=== PATIENT | male | born 1930 | race Caucasian/White ===

== ENCOUNTER → 2019-04-04 | Outpatient (CLI) | payer MEDICARE ==
[~2019-04-04] MED LIST: FURO40 PO; LOSARTAN POTAS100 MG PO; METPRE4DP PO; OMEP20ER; POTCHL20ER PO; PRODEXEL PO; SIMV40 PO; Zithromax250 MG PO
== END | disposition home or self-care (01) ==
LOC: LAB EV 10:35
DX: R05 Cough (principal)
CPT/HCPCS: 87070; 87106; 87205

== ENCOUNTER 2020-01-26 06:29 | Inpatient (IN) | payer MEDICARE, OTHER ==
[~2020-01-26] VITALS: Ht 172.7 cm; Wt 98.8 kg
[2020-01-26] MEDS ORDERED: Ventolin/Prove6.7 GM INH (07:48)
[2020-01-26] MEDS ORDERED: Simvastatin40 MG PO (07:48)
[2020-01-26] MEDS ORDERED: LOSA25 (07:48)
[2020-01-26] MEDS ORDERED: Carvedilol25 MG PO (07:48)
[2020-01-26] MEDS ORDERED: OMEP20ER PO ×2 (07:49→12:27)
[2020-01-26] MEDS ORDERED: TERA5 PO (07:49)
[2020-01-26 08:06] LABS: BASOPHILS ABSOLUTE AUTO 0.02 K/mm3 (0.00-0.23); BASOPHILS PERCENT AUTO 0 % (0-2); EOSINOPHILS ABSOLUTE AUTO 0.05 K/mm3 (0.00-0.68); EOSINOPHILS PERCENT AUTO 0 % (0-6); Hematocrit 42.5 % (37.0-53.0); Hemoglobin 14.4 g/dL (13.5-17.5); IMMATURE GRAN ABSOLUTE AUTO 0.04 K/mm3 (0.00-0.10); IMMATURE GRAN PERCENT AUTO 0 % (0-1); LYMPHOCYTES PERCENT AUTO 4 % (21-46); MONOCYTES ABSOLUTE AUTO 0.55 K/mm3 (0.16-1.47); MONOCYTES PERCENT AUTO 5 % (4-13); Mean Corpuscular HGB 31.4 pg (26.0-34.0); Mean Corpuscular HGB Conc 33.9 g/dL (31.5-36.5); Mean Corpuscular Volume 93 fL (80-100); Mean Platelet Volume 10.8 fL (9.1-12.4); NEUTROPHILS ABSOLUTE AUTO 10.13 K/mm3 (1.96-9.15); NEUTROPHILS PERCENT AUTO 90 % (41-73); Platelet Count 211 K/mm3 (150-400); RDW Coefficient Variation 13.1 % (11.7-14.2); RDW Standard Deviation 44.8 fL (35.1-46.3); Red Blood Cell Count 4.58 M/mm3 (4.30-5.90); White Blood Cell Count 11.29 K/mm3 (4.00-11.30)
[2020-01-26 08:25] LABS: International Normalized Ratio 1.03
[2020-01-26 08:27] LABS: Alanine Aminotransfer (ALT/SGP 23 U/L (12-78); Albumin, Blood 3.6 g/dL (3.4-5.0); Albumin/Globulin Ratio 0.9 (0.8-1.8); Alk Phos 53 U/L (50-136); Anion Gap 7 mmol/L (6-16); Aspartate Aminotrans (AST/SGOT 18 U/L (12-37); Bilirubin, Total 0.7 mg/dL (0.1-1.0); Blood Urea Nitrogen 15 mg/dL (8-24); Bun/Creatinine Ratio 23.4 (12.0-20.0); CO2, Blood 25 mmol/L (21-32); Calcium, Blood 9.1 mg/dL (8.5-10.1); Chloride, Blood 101 mmol/L (98-108); Creatinine, Blood 0.64 mg/dL (0.60-1.20); Globulin, Blood 4.1 g/dL (2.2-4.0); Glomerular Filtration Rate >60 (60-); Glucose, Blood 121 mg/dL (70-99); Potassium, Blood 4.2 mmol/L (3.5-5.5); Sodium, Blood 133 mmol/L (136-145); Total Protein, Blood 7.7 g/dL (6.4-8.2); Troponin I <0.015 ng/mL (0.000-0.040)
[2020-01-26 10:45] LABS: Adenovirus Not Detected (NOT DETECT); Coronavirus 229E Not Detected (NOT DETECT); Coronavirus HKU1 Not Detected (NOT DETECT); Coronavirus NL63 Not Detected (NOT DETECT); Coronavirus OC43 Not Detected (NOT DETECT)
[2020-01-26 10:46] LABS: Bordetella pertussis Not Detected (NOT DETECT); Chlamydophila pneumoniae Not Detected (NOT DETECT); Human Metapneumovirus Not Detected (NOT DETECT); Human Rhinovirus/Enterovirus Not Detected (NOT DETECT); Influenza A/2009-H1 Not Detected (NOT DETECT); Influenza A/H1 Not Detected (NOT DETECT); Influenza A/H3 Not Detected (NOT DETECT); Influenza B Not Detected (NOT DETECT); Mycoplasma pneumoniae Not Detected (NOT DETECT); Parainfluenza Virus 1 Not Detected (NOT DETECT); Parainfluenza Virus 2 Not Detected (NOT DETECT); Parainfluenza Virus 3 Not Detected (NOT DETECT); Parainfluenza Virus 4 Not Detected (NOT DETECT); Respiratory Syncytial Virus Not Detected (NOT DETECT); SARS-Cov-2 (COVID-19), BioFire Not Detected (NOT DETECT)
[2020-01-26 10:51] LABS: Source, Urine Clean Catch
[2020-01-26 10:58] LABS: Bilirubin, Urine Neg (Neg); Blood, Urine 5+ (Neg); Glucose Qualitative, Urine Neg (Neg); Ketones, Urine 1+ (Neg); Leukocyte Esterase, Urine 1+ (Neg); Nitrite, Urine Neg (Neg); Protein, Urine 2+ (Neg); Urobilinogen, Urine NORM (Normal); pH, Urine 6.5 (5.0-8.0)
[2020-01-26 11:20] LABS: Appearance, Urine Hazy (Clear); Color, Urine Red (P-Yellow)
[2020-01-26 11:22] LABS: Red Blood Cells, Urine TNTC /hpf (0-2); Squamous Epithelial Cells Rare /hpf (Few)
[2020-01-26 11:23] LABS: Bacteria Few /hpf
[2020-01-26] MEDS ORDERED: SPIRIVA RESPIMAT4 G3 INH (12:27)
[2020-01-27 04:37] LABS: BASOPHILS ABSOLUTE AUTO 0.05 K/mm3 (0.00-0.23); BASOPHILS PERCENT AUTO 0 % (0-2); EOSINOPHILS ABSOLUTE AUTO 0.09 K/mm3 (0.00-0.68); EOSINOPHILS PERCENT AUTO 1 % (0-6); Hematocrit 39.1 % (37.0-53.0); Hemoglobin 13.2 g/dL (13.5-17.5); IMMATURE GRAN ABSOLUTE AUTO 0.05 K/mm3 (0.00-0.10); IMMATURE GRAN PERCENT AUTO 0 % (0-1); LYMPHOCYTES ABSOLUTE AUTO 1.65 K/mm3 (0.84-5.20); LYMPHOCYTES PERCENT AUTO 12 % (21-46); MONOCYTES ABSOLUTE AUTO 1.22 K/mm3 (0.16-1.47); MONOCYTES PERCENT AUTO 9 % (4-13); Mean Corpuscular HGB 31.6 pg (26.0-34.0); Mean Corpuscular HGB Conc 33.8 g/dL (31.5-36.5); Mean Corpuscular Volume 94 fL (80-100); Mean Platelet Volume 10.4 fL (9.1-12.4); NEUTROPHILS ABSOLUTE AUTO 10.65 K/mm3 (1.96-9.15); NEUTROPHILS PERCENT AUTO 78 % (41-73); Platelet Count 193 K/mm3 (150-400); RDW Coefficient Variation 13.2 % (11.7-14.2); RDW Standard Deviation 45.3 fL (35.1-46.3); Red Blood Cell Count 4.18 M/mm3 (4.30-5.90); White Blood Cell Count 13.71 K/mm3 (4.00-11.30)
[2020-01-27 04:53] LABS: Anion Gap 6 mmol/L (6-16); Blood Urea Nitrogen 21 mg/dL (8-24); Bun/Creatinine Ratio 24.9 (12.0-20.0); CO2, Blood 28 mmol/L (21-32); Calcium, Blood 9.1 mg/dL (8.5-10.1); Chloride, Blood 96 mmol/L (98-108); Creatinine, Blood 0.84 mg/dL (0.60-1.20); Glomerular Filtration Rate >60 (60-); Glucose, Blood 100 mg/dL (70-99); Potassium, Blood 3.7 mmol/L (3.5-5.5); Sodium, Blood 130 mmol/L (136-145)
--- NOTE | 2020-01-27 05:23 | NUR ---
SHIFT SUMMARY- PT. A&O, PLEASANT, AND COOPERATIVE WITH CARE. HAS PRODUCTIVE COUGH WITH BLOOD TINGED SPUTUM. SPUTUM CX COLLECTED. PT. HAD NO COMPLAINTS T/O THE SHIFT. RESTED QUIETLY IN BED, NO APPARENT DISTRESS NOTED. USES URINAL AT BEDSIDE. VSS. NO ACUTE CHANGES TO CONDITION. CALL LIGHT WITHIN REACH AND SIDE RAILS UPX2. WILL CONT TO MONITOR.
--- NOTE | 2020-01-27 08:00 | NUR ---
PT PLEASANT COOP A/O. QUITE BIG SANDY. STATES GENERALIZED PAIN IN TOLERABLE LIMITS. REQ NO MED. H/R REG, NO MURMER NOTED. NO TELE. LUNGS WHEEZY AND COARSE T/O. ON 2L O2. OCC COUGH, STATES LITE BLOOD IN SPUTUM. PLACED SPECIMIN CUP TO OBSERVE. RESP EASY, UNLABORED. BT X4 LAST BM YEST. VOIDS URINAL. IS SBA TO BATHROOM. BED IN LOW POSITION,, CALL LITE IN REACH, CALLS APPROP
--- NOTE | 2020-01-27 10:57 | NUR ---
Initial Visit: Palliative consult for advanced care planning. Pt has past medical history of COPD, hypertension, CHF, pre-diabetes, BPH, and depression admitted to the hospital for shortness of breath, cough, fever, and hemoptysis. Pt will be undergoing a lung biopsy to follow up on new 4mm mass seen on chest x-ray. This is newly discovered this admission. Patient is laying in hospital bed. He is short of breath at rest, wearing oxygen canula. Pt is hard of hearing and conversation is difficult. It also appears that pt does not completely understand advance directives and resusitation efforts as presented. He requests his be present to discuss this as well. Pt denies pain, anxiety, and depression a this time. Requested RN notify palliative care when arrives today to have follow up conversation.
--- NOTE | 2020-01-27 13:32 | NUR ---
OBSERVED SPUTUM, MOSTLY CLEAR FLUID NOTED. DID NOT OBSERVE BLOOD COLOR OR STREAKS. OBSERVED URING, CLEAR YELLOW FLUID NOTED. DID NOT OBSERVE BLOOD COLOR IN URINAL.
--- NOTE | 2020-01-27 18:20 | NUR ---
PTPLEASANT TODAY. DENIES PAIN. OCC COUGH OF BROWN THICK SPUTUM. NO NEW CONCERNS TODAY.. PT SITTING IN CHAIR . BED IN LOW POSITION, CALL LITE IN REACH, CALLS APPROP. DID HAVE CT OF ABD PELVIS TODAY. PT IN ROOM TODAY TO VISIT.
--- NOTE | 2020-01-28 02:58 | NUR ---
PATIENT IS ALERT AND ORIENTED. HAS BEEN PLEASANT WITH MINIMAL NEEDS OVERNIGHT. HE HAS BEEN HAVING A HACKING PRODUCTIVE COUGH TO THE POINT WHERE IT WAS STARTING TO MAKE HIM GAG. THIS RN CONTACTED THE PERSONAL BANKING REPRESENTATIVE PHYSICIAN, DR LEON, TO NOTIFY HER OF THE SITUATION AND ASK IF THE PATIENT COULD BE ORDERED ANY COUGH MEDICINE SO THAT HE COULD GET SOME SLEEP TONIGHT. DR LEON SAID SHE WOULD ENTER ORDERS FOR COUGH MEDICINE. IVS PATENT AND FLUSHED. PATIENT HANDED OF TO RN'S LILIYA LOCKETT.
[2020-01-28 04:25] LABS: BASOPHILS ABSOLUTE AUTO 0.01 K/mm3 (0.00-0.23); BASOPHILS PERCENT AUTO 0 % (0-2); EOSINOPHILS ABSOLUTE AUTO 0.13 K/mm3 (0.00-0.68); EOSINOPHILS PERCENT AUTO 1 % (0-6); Hematocrit 38.9 % (37.0-53.0); Hemoglobin 13.2 g/dL (13.5-17.5); IMMATURE GRAN ABSOLUTE AUTO 0.02 K/mm3 (0.00-0.10); IMMATURE GRAN PERCENT AUTO 0 % (0-1); LYMPHOCYTES ABSOLUTE AUTO 1.42 K/mm3 (0.84-5.20); LYMPHOCYTES PERCENT AUTO 14 % (21-46); MONOCYTES ABSOLUTE AUTO 1.13 K/mm3 (0.16-1.47); MONOCYTES PERCENT AUTO 11 % (4-13); Mean Corpuscular HGB 31.3 pg (26.0-34.0); Mean Corpuscular HGB Conc 33.9 g/dL (31.5-36.5); Mean Corpuscular Volume 92 fL (80-100); Mean Platelet Volume 10.3 fL (9.1-12.4); NEUTROPHILS ABSOLUTE AUTO 7.41 K/mm3 (1.96-9.15); NEUTROPHILS PERCENT AUTO 73 % (41-73); Platelet Count 187 K/mm3 (150-400); RDW Coefficient Variation 13.1 % (11.7-14.2); RDW Standard Deviation 44.5 fL (35.1-46.3); Red Blood Cell Count 4.22 M/mm3 (4.30-5.90); White Blood Cell Count 10.12 K/mm3 (4.00-11.30)
--- NOTE | 2020-01-28 04:25 | NUR ---
PERFORATING MACHINE OPERATOR SUMMARY ASSUMED CARE OF PT AROUND 254. LUNGS CONTINUE TO SOUND WHEEZY AND COARSE T/O. PT REPORTS DECREASED COUGH AT THIS TIME. DENIES PAIN. VSS. BED IN LOWEST POSITION WITH CALL LIGHT IN REACH. WILL CONTINUE TO MONITOR AND REPORT TO ONCOMING RN.
[2020-01-28 04:41] LABS: Albumin, Blood 3.1 g/dL (3.4-5.0); Anion Gap 6 mmol/L (6-16); Blood Urea Nitrogen 22 mg/dL (8-24); Bun/Creatinine Ratio 29.7 (12.0-20.0); CO2, Blood 27 mmol/L (21-32); Chloride, Blood 96 mmol/L (98-108); Creatinine, Blood 0.74 mg/dL (0.60-1.20); Glomerular Filtration Rate >60 (60-); Glucose, Blood 103 mg/dL (70-99); Phosphorus, Blood 2.3 mg/dL (2.5-4.9); Potassium, Blood 4.3 mmol/L (3.5-5.5); Sodium, Blood 129 mmol/L (136-145)
--- NOTE | 2020-01-28 16:30 | NUR ---
SHIFT SUMMARY: NO ACUTE EVENTS THIS SHIFT. DENIES PAIN. ON ROOM AIR, DENIES SOB BUT HAS SLIGHT LIN. PRODUCIVE COUGH WITH BLOOD-TINGED MANCILLA SPUTUM. LBM TODAY, USING URINAL INDEPENDENTLY. DAUGHTER NAKIA VISITED; HAD MANY QUESTIONS REGARDING PATIENT'S HEART FAILURE HISTORY AND THOUGHT HE WAS "OVER THAT." ANSWERED WHAT QUESTIONS I COULD, BUT SUGGESTED THAT PATIENT GO TO MEDICAL RECORDS TO RECEIVE COPIES OF HIS RECORDS SO HIS DAUGHTER COULD LOOK AT THEM IF HE CHOSE. ALSO HAD QUESTIONS ABOUT LUNG BIOPSY (WHERE, WHEN, HOW IT'S DONE), ANSWERED ABLE. PATIENT DOES NOT UNDERSTAND HIS HOME MEDICATIONS AND WOULD BENEFIT FROM HOME HEALTH RN TO REINFORCE MEDICATION EDUCATION.
[2020-01-29 04:51] LABS: Anion Gap 6 mmol/L (6-16); Blood Urea Nitrogen 16 mg/dL (8-24); Bun/Creatinine Ratio 23.4 (12.0-20.0); CO2, Blood 29 mmol/L (21-32); Chloride, Blood 94 mmol/L (98-108); Creatinine, Blood 0.68 mg/dL (0.60-1.20); Glomerular Filtration Rate >60 (60-); Glucose, Blood 109 mg/dL (70-99); Potassium, Blood 4.2 mmol/L (3.5-5.5); Sodium, Blood 129 mmol/L (136-145)
--- NOTE | 2020-01-29 06:34 | NUR ---
SHIFT SUMMARY PATIENT ALERT AND ORIENTED. HAD NO COMPLAINTS OF PAIN OR SHORTNESS OF BREATH. LUNGS CONTINUE TO SOUND WHEEZY BUT COUGHING HAS LESSENED AND PATIENT SEEMS TO BE ABLE TO COUGH UP PHLEGM BETTER. BOTH IVS PATENT AND FLUSHED. BED IN LOWEST POSITION WITH WHEELS LOCKED. CALL LIGHT WITHIN REACH. REPORT GIVEN TO ONCOMING RN.
[2020-01-29] MEDS ORDERED: BENZ100A PO (10:17)
[2020-01-29] MEDS ORDERED: TAMS.4ER PO (10:18)
[2020-01-29] MEDS ORDERED: Q-Tussin100 MG/5 M (10:18)
[2020-01-29] MEDS ORDERED: FURO20 PO (10:18)
[2020-01-29] MEDS ORDERED: LEVAQUIN750 MG PO (10:19)
--- NOTE | 2020-01-29 11:15 | NUR ---
PATIENT DISCHARGED TO HOME IN THE COMPANY OF HIS DAUGHTER NAKIA. BOTH PIV'S REMOVED WITHOUT INCIDENT. VERBALIZED UNDERSTANDING OF D/C INSTRUCTIONS, THEY WILL HAVE TO CALL FOR F/U APPOINTMENT. PATIENT TAKEN DOWNSTAIRS VIA W/C BY THIS AUTHOR AT 1110. HAS ALL BELONGINGS.
== END 2020-01-29 11:10 | disposition home or self-care (01) | DRG 871 ==
LOC: ER 06:29 → MEDS 12:23
PROVIDERS: Emergency Medicine; Internal Medicine; Nurse Practitioner Acute Care; ADMIT Hospitalist
DX: A41.9 Sepsis, unspecified organism (principal); J18.9 Pneumonia, unspecified organism; J96.01 Acute respiratory failure with hypoxia; E87.1 Hypo-osmolality and hyponatremia; I50.32 Chronic diastolic (congestive) heart failure; R04.2 Hemoptysis; J44.0 Chronic obstructive pulmonary disease with (acute) lower respiratory infection; B44.1 Other pulmonary aspergillosis; Z20.828 Contact with and (suspected) exposure to other viral communicable diseases; I11.0 Hypertensive heart disease with heart failure; F32.9 Major depressive disorder, single episode, unspecified; K21.9 Gastro-esophageal reflux disease without esophagitis; Z87.891 Personal history of nicotine dependence; N40.1 Benign prostatic hyperplasia with lower urinary tract symptoms; R31.9 Hematuria, unspecified
CPT/HCPCS: 0202U; 36415; 71045; 71260; 74176; 80048; 80053; 80069; 81001; 83605; 83880; 84145; 84484; 85025; 85610; 87040; 87070; 87086; 87205; 93005; 93010; 94640; 94667; 94668; 94760; 96365; 99285-25; A9270; J0696; J1650; Q2038; Q9967

== ENCOUNTER → 2020-04-24 | Outpatient (CLI) | payer MEDICARE ==
[~2020-04-24] MED LIST changes: +ACET325 PO; +ACIDOPHILUS1 EAC3 PO; +ALBU90OI INH; +ATOR20 PO; +Acetaminophen325 M1 PO; +BENZ100A PO; +CARV6.25 PO; +CEFP200 PO; +DOCU100 PO; +ELIQUIS2.5 MG PO; +FINA5 PO; +FURO20 PO; +IPRAT-ALBUT 0.5-3 ML INH; +LANOXIN125 MCG PO; +LEVAQUIN750 MG PO; +LOSA25; +LOSA25 PO; +LOSARTAN POTAS100 M1 PO; -LOSARTAN POTAS100 MG PO; +METO25ER PO; +OMEP20ER PO; +POTA10T PO; +PROBIOTIC1 EA13; +Q-Tussin100 MG/5 M; +Q-Tussin100 MG/5 M PO; +SPIRIVA RESPIMAT4 G3 INH; +Simvastatin20 MG PO; +Simvastatin40 MG PO; +TAMS.4ER PO; +TAMSULOSIN HCL0.4 M1 PO; +TERA5 PO; +VITAMIN D31000 UNI1 PO; +Ventolin/Prove6.7 GM INH; +[UNRECOGNIZED DRUG - REMARK] PO
== END | disposition home or self-care (01) ==
LOC: LAB SHORT 08:14 → PLD 08:14
DX: D48.5 Neoplasm of uncertain behavior of skin (principal)
CPT/HCPCS: 88305

== ENCOUNTER 2020-05-19 14:15 | Inpatient (IN) | payer MEDICARE ==
[~2020-05-19] VITALS: Ht 170.2 cm; Wt 90.7 kg
[~2020-05-19 14:15] MED LIST changes: -ACET325 PO; -ALBU90OI INH; -ATOR20 PO; -CEFP200 PO; -DOCU100 PO; -ELIQUIS2.5 MG PO; -FINA5 PO; -IPRAT-ALBUT 0.5-3 ML INH; -LANOXIN125 MCG PO; -LOSARTAN POTAS100 M1 PO; -METO25ER PO; -POTA10T PO; -PROBIOTIC1 EA13; -Simvastatin20 MG PO; -TAMSULOSIN HCL0.4 M1 PO; -VITAMIN D31000 UNI1 PO; -[UNRECOGNIZED DRUG - REMARK] PO
[2020-05-19 14:57] LABS: Hematocrit 35.7 % (37.0-53.0); Hemoglobin 11.9 g/dL (13.5-17.5); Mean Corpuscular HGB 31.9 pg (26.0-34.0); Mean Corpuscular HGB Conc 33.3 g/dL (31.5-36.5); Mean Corpuscular Volume 96 fL (80-100); Mean Platelet Volume 10.1 fL (9.1-12.4); Platelet Count 270 K/mm3 (150-400); RDW Coefficient Variation 16.5 % (11.7-14.2); Red Blood Cell Count 3.73 M/mm3 (4.30-5.90); White Blood Cell Count 38.13 K/mm3 (4.00-11.30)
[2020-05-19 15:14] LABS: Troponin I 0.037 ng/mL (0.000-0.040)
[2020-05-19 15:15] LABS: Alanine Aminotransfer (ALT/SGP 18 U/L (12-78); Albumin, Blood 3.1 g/dL (3.4-5.0); Alk Phos 49 U/L (50-136); Anion Gap 9 mmol/L (6-16); Aspartate Aminotrans (AST/SGOT 10 U/L (12-37); Bilirubin, Total 0.6 mg/dL (0.1-1.0); Blood Urea Nitrogen 27 mg/dL (8-24); Bun/Creatinine Ratio 43.3 (12.0-20.0); CO2, Blood 23 mmol/L (21-32); Calcium, Blood 8.6 mg/dL (8.5-10.1); Chloride, Blood 103 mmol/L (98-108); Creatinine, Blood 0.62 mg/dL (0.60-1.20); Globulin, Blood 3.2 g/dL (2.2-4.0); Glomerular Filtration Rate >60 (60-); Glucose, Blood 97 mg/dL (70-99); Potassium, Blood 3.9 mmol/L (3.5-5.5); Sodium, Blood 135 mmol/L (136-145); Total Protein, Blood 6.3 g/dL (6.4-8.2)
[2020-05-19 15:55] LABS: BAND PERCENT MAN 3 % (0-8); BASOPHILS PERCENT MAN 0 % (0-2); EOSINOPHILS PERCENT MAN 0 % (0-6); LYMPHOCYTES ABSOLUTE MAN 0.76 K/mm3 (0.84-5.20); LYMPHOCYTES PERCENT MAN 2 % (21-46); METAMYELOCYTE ABSOLUTE MAN 0.76 K/mm3 (0.00-0.00); METAMYELOCYTE PERCENT MAN 2 % (0-0); MONOCYTES ABSOLUTE MAN 0.76 K/mm3 (0.16-1.47); MONOCYTES PERCENT MAN 2 % (4-13); NEUTROPHILS ABSOLUTE MAN 35.84 K/mm3 (1.96-9.15); SEG NEUTROPHILS PERCENT MAN 91 % (41-73); TOTAL CELLS COUNTED 100
[2020-05-19] MEDS ORDERED: TERA5 PO ×2 (17:16→17:27)
[2020-05-19] MEDS ORDERED: TAMSULOSIN HCL0.4 M1 PO (17:17)
[2020-05-19] MEDS ORDERED: [UNRECOGNIZED DRUG - REMARK] PO (17:23)
[2020-05-19] MEDS ORDERED: LOSARTAN POTAS100 M1 PO (17:24)
[2020-05-19] MEDS ORDERED: OMEP20ER PO (17:25)
[2020-05-19] MEDS ORDERED: Simvastatin20 MG PO (17:26)
[2020-05-19] MEDS ORDERED: VITAMIN D31000 UNI1 PO (17:28)
[2020-05-19 18:38] LABS: Source, Urine Clean Catch
[2020-05-19 18:49] LABS: Bilirubin, Urine Neg (Neg); Blood, Urine 3+ (Neg); Glucose Qualitative, Urine Neg (Neg); Ketones, Urine Neg (Neg); Leukocyte Esterase, Urine Neg (Neg); Nitrite, Urine Neg (Neg); Protein, Urine Neg (Neg); Urobilinogen, Urine NORM (Normal)
[2020-05-19 18:57] LABS: Appearance, Urine Clear (Clear); Color, Urine Pale Yellow (P-Yellow)
[2020-05-19 18:59] LABS: Bacteria Rare /hpf; Squamous Epithelial Cells Rare /hpf (Few); White Blood Cells, Urine 0-2 /hpf (0-5)
--- NOTE | 2020-05-19 22:45 | NUR ---
UPDATE AT APPROX 2142 RN WAS IN ROOM TITRATING OFF THE CARDIZEM GTT DUE TO A HEART RATE IN THE LOW 60'S. WHEN PATIENT STARTED TO BECOME VERY PALE AND DIAPHORETIC. PATIENT WAS SITTING UP AT THE EDGE OF THE BED AND HE STARTED TO SWAY BACK IN BED. INSULATION MACHINE OPERATOR AND RN ASSISTED PATIENT BACK DOWN TO LAYING IN THE BED. VITAL SIGNS OBTAINED. PATIENT ALERT THE WHOLE TIME AND TALKING WITH STAFF. HE STATED HE FELT "VERY TIRED" BUT DENIED ANY DIZZINESS OR LIGHT HEADEDNESS. DR CLEARY NOTIFIED AT APPROX 2200 THAT PATIENT'S HEART RATE WAS NOW IN THE 40'S-50'S, THAT HE HAD BECOME VERY PALE AND DIAPHORETIC, AND THAT HIS BLOOD PRESSURE WAS LOW. ORDERS RECIEVED. PATIENT CURRENTLY HAS COLOR BACK AND CONTINUES TO DENY ANY DIZZINESS OR LIGHT HEADEDNESS. PATIENT MEDICATED WITH ZOFRAN IN ATTEMPT TO RELIEVE HEARTBURN. PATIENT LAYING IN BED ATTEMPTING TO REST.
--- NOTE | 2020-05-20 00:43 | NUR ---
UPDATE DR LEON NOTIFIED THAT PATIENT'S BLOOD PRESSURE IS TRENDING DOWN AGAIN. PATIENT CONTINUES TO BE ASYMPTOMATIC. ORDER RECIEVED.
--- NOTE | 2020-05-20 01:53 | NUR ---
UPDATE DR LEON NOTIFIED OF PATIENT'S CONTINUED LOW BLOOD PRESSURE AFTER SECOND BOLUS. DR LEON ORDERED TO RECHECK PATIENT'S BLOOD PRESSURE IN APPROX 20 MINUTES AND CALL HER BACK IF HIS MAP CONTINUES TO BE LESS THAN 65. PATIENT CONTINUES TO BE ASYMPTOMATIC AT THIS TIME.
--- NOTE | 2020-05-20 02:41 | NUR ---
UPDATE MAP WAS 68 UPON BLOOD PRESSURE RECHECK APPROX 20 MINUTES LATER.
[2020-05-20 06:45] LABS: Hematocrit 30.5 % (37.0-53.0); Hemoglobin 10.5 g/dL (13.5-17.5); Mean Corpuscular HGB 33.4 pg (26.0-34.0); Mean Corpuscular HGB Conc 34.4 g/dL (31.5-36.5); Mean Corpuscular Volume 97 fL (80-100); Mean Platelet Volume 10.1 fL (9.1-12.4); Platelet Count 208 K/mm3 (150-400); RDW Coefficient Variation 16.6 % (11.7-14.2); RDW Standard Deviation 58.9 fL (35.1-46.3); Red Blood Cell Count 3.14 M/mm3 (4.30-5.90); White Blood Cell Count 41.36 K/mm3 (4.00-11.30)
--- NOTE | 2020-05-20 06:52 | NUR ---
SHIFT SUMMARY PATIENT HAS BEEN PLEASENT AND COOPERATIVE THROUGHOUT THE NIGHT. PATIENT APPEARS TO HAVE SLEEP WELL LAST NIGHT. PATIENT VERY HARD OF HEARING BUT USES HEARING AID. PATIENT APPEARS TO BE ABLE TO MOVE SELF ABOUT WELL IN BED. PATIENT CURRENTLY APPEARS TO BE RESTING IN BED. PATIENT'S HEART RATE STARTING TO INCREASE TO THE LOW 100'S THIS MORNING. VITAL SIGNS CHARTED. WILL CONTINUE CURRENT PLAN OF CARE.
[2020-05-20 07:04] LABS: Anion Gap 6 mmol/L (6-16); Blood Urea Nitrogen 27 mg/dL (8-24); Bun/Creatinine Ratio 31.1 (12.0-20.0); CO2, Blood 29 mmol/L (21-32); Calcium, Blood 8.3 mg/dL (8.5-10.1); Chloride, Blood 101 mmol/L (98-108); Creatinine, Blood 0.87 mg/dL (0.60-1.20); Glomerular Filtration Rate >60 (60-); Glucose, Blood 99 mg/dL (70-99); Magnesium, Blood 1.7 mg/dL (1.6-2.4); Potassium, Blood 4.4 mmol/L (3.5-5.5); Sodium, Blood 136 mmol/L (136-145); Troponin I 0.042 ng/mL (0.000-0.040)
--- NOTE | 2020-05-20 13:37 | NUR ---
HOSPITALIST NOTIFIED IN TO ASSESS PT. SHE HAS BEEN UPDATED ON PT'S INCREASED HR & FLUCTUATING BP. PT HAD REMAINED IN AFIB HIGH 90'S-150'S, 1 MG IV LOPRESSOR WAS ORDERED TO BE GIVEN NOW, PRIOR TO ADMINISTRATION HR WAS VERIFIED WITH SHAFT MECHANIC, HR WAS 75-85 FOR THE PREVIOUS 10 MINUTES, LOPRESSOR WAS HELD, NOTIFIED, PT IS RESTING QUIETLY AT THIS TIME, BP WNL, RESP UNLABORED, CALL LIGHT IN REACH. WCTM.
--- NOTE | 2020-05-20 15:52 | NUR ---
1 MG IV LOPRESSOR GIVEN, PT SUSTAINING HR 120-145. NO CP/PRESSURE NOTED. PT'S GRAND DAUGHTER IS AT THE BEDSIDE, PT & FAMILY EDUCATED ABOUT THE MEDICATION & HOSPITAL COURSE SO FAR. QUESTIONS ANSWERED, PT STATED UNDERSTANDING.
--- NOTE | 2020-05-20 19:34 | NUR ---
SHIFT SUMMARY PT REMAINS ASYMPTOMATIC OF AFIB W/INCREASED HR, DENIES CP.PRESSURE, BP WNL THROUGH OUT THE DAY, IV LOPRESSOR 1-2 MG Q4 PRN WAS ORDERED THIS EVENING. 2 MG GIVEN, PT TOLERATING WITH NO PROBLEMS. ECHO WAS NOT COMPLETED TODAY DUE TO HR. PT IS TOLERATING PO INTAKE, STAND BY ASSIST TO THE BATHROOM, URINE IS CRANBERRY COLORED, 1 BLOOD CLOT NOTED THIS AM, NONE SINCE, PT DENIES PAIN W/URINATION, "FAMILY STATES IT HAS HAPPENED BEFORE" BUT WERE UNABLE TO GIVE A CLEAR DATE. WAS NOTIFIED OF PT'S STATUS. PT'S DAUGHTER & GRAND DAUGHTER HAVE BEEN INFORMED & EDUCATED ABOUT THE TREATMENT & CONDITION SO FAR, HIS DAUGHTER WAS UPSET ABOUT VISITOR POLICY, STATES SHE HAS TO BE HERE DE TO "HER DAD NOT REMEMBERING THINGS",PT HAS BEEN A&O X3 WITH NO OBVIOUS MEMORY DEFICT THROUGH THE DAY. SHE WAS ENC TO DISCUSS HEALTHCARE PROXY DECISION WITH PT & FAMILY. STATED SHE ATTEMPTED TO CALL THE DAUGHTER THIS EVENING TO UPDATE HER AND ANSWER ANY CONCERNS, THE CALL WOULD NOT GO THROUGH. PT WAS NOTIFIED. REPORT GIVEN TO NOC RN. CALL LIGHT IN REACH.
[2020-05-21 04:16] LABS: BASOPHILS ABSOLUTE AUTO 0.01 K/mm3 (0.00-0.23); BASOPHILS PERCENT AUTO 0 % (0-2); EOSINOPHILS ABSOLUTE AUTO 0.12 K/mm3 (0.00-0.68); EOSINOPHILS PERCENT AUTO 0 % (0-6); Hematocrit 29.7 % (37.0-53.0); Hemoglobin 9.8 g/dL (13.5-17.5); IMMATURE GRAN ABSOLUTE AUTO 4.27 K/mm3 (0.00-0.10); IMMATURE GRAN PERCENT AUTO 14 % (0-1); LYMPHOCYTES ABSOLUTE AUTO 0.15 K/mm3 (0.84-5.20); LYMPHOCYTES PERCENT AUTO 1 % (21-46); MONOCYTES ABSOLUTE AUTO 0.43 K/mm3 (0.16-1.47); MONOCYTES PERCENT AUTO 1 % (4-13); Mean Corpuscular HGB 31.9 pg (26.0-34.0); Mean Corpuscular Volume 97 fL (80-100); Mean Platelet Volume 10.9 fL (9.1-12.4); NEUTROPHILS ABSOLUTE AUTO 25.86 K/mm3 (1.96-9.15); NEUTROPHILS PERCENT AUTO 84 % (41-73); Platelet Count 159 K/mm3 (150-400); RDW Coefficient Variation 16.4 % (11.7-14.2); Red Blood Cell Count 3.07 M/mm3 (4.30-5.90); White Blood Cell Count 30.84 K/mm3 (4.00-11.30)
[2020-05-21 04:32] LABS: Anion Gap 4 mmol/L (6-16); Blood Urea Nitrogen 23 mg/dL (8-24); Bun/Creatinine Ratio 31.9 (12.0-20.0); CO2, Blood 31 mmol/L (21-32); Calcium, Blood 8.4 mg/dL (8.5-10.1); Chloride, Blood 101 mmol/L (98-108); Creatinine, Blood 0.72 mg/dL (0.60-1.20); Glomerular Filtration Rate >60 (60-); Glucose, Blood 94 mg/dL (70-99); Sodium, Blood 136 mmol/L (136-145)
[2020-05-21 04:45] LABS: BAND PERCENT MAN 3 % (0-8); BASOPHILS PERCENT MAN 0 % (0-2); EOSINOPHILS PERCENT MAN 0 % (0-6); MONOCYTES PERCENT MAN 0 % (4-13); NEUTROPHILS ABSOLUTE MAN 30.84 K/mm3 (1.96-9.15); SEG NEUTROPHILS PERCENT MAN 97 % (41-73); TOTAL CELLS COUNTED 100
--- NOTE | 2020-05-21 07:36 | NUR ---
SHIFT SUMMARY PATIENT PLEASENT AND COOPERATIVE THROUGHOUT THE NIGHT. PATIENT APPEARED TO SLEEP WELL THROUGHOUT THE NIGHT. PATIENT MEDICATED FOR HIGH HEART RATE PER EMAR. PATIENT'S VITAL SIGNS CHARTED. PATIENT'S URINE WAS RED AT THE BEGINNING OF THE SHIFT BUT BY THE END OF THE NIGHT PATIENT'S URINE WAS DARK YELLOW IN COLOR. REPORT GIVEN TO ONCOMING RN.
--- NOTE | 2020-05-21 12:50 | NUR ---
TRANSFER: PT ALERT AND ORIENTED X4. HARD OF HEARING. ON 2 L OR VIA NASAL CANNULA SATING ABOVE 92%. TELE SHOWING AFIB WITH HR AVERAGING 100-110. PT DENIES CHEST PAIN. TAKING PILLS THIS AM WITH APPLESAUCE. DENIES ANY PAIN. URINE CLEAR/YELLOW. UP TO BATHROOM, STEADY ON FEET. FLUID RESTRICTION MAINTAINED. CALL LIGHT REMAINED IN REACH. PT EDUCATED ON FALL PREVENTION AND SAFETY. WILL CONTINUE TO MONITOR AND REPORT OFF FOR TRANSFER.
--- NOTE | 2020-05-21 17:42 | NUR ---
SHIFT SUMMARY. 1315 PT TRANSFERED FROM PCU TO MEDICAL FLOOR VIA W/C. PT ON 3L O2 NC, PT DENIES DYSPNEA. PT IS A&OX4, INDEPENDENT TO BATHROOM. PT SLEPT MOST OF THE AFTERNOON. DR. PARRA CONSULTED WITH PT IN ROOM AT 1730, HE REPORTED THAT HE WILL BE MAKING CHANGES TO PT'S MEDICATIONS. PT CONTINUES TO BE IN AFIB WITH HR RANGING FROM 110-120'S PER TELE. AWAITING NEW ORDERS. NO OTHER CHANGES OR CONCERNS.
--- NOTE | 2020-05-22 04:00 | NUR ---
RECEIVED CALL FROM JULY IN TELE. STATED PT. HAD 6 BEAT RUN OF VTACH, HR AT 82 AND PT. RETURNED TO SR. PT. RESTING QUIETLY IN BED AT THIS TIME, NO APPARENT DISTRESS NOTED AND NO COMPLAINTS. VSS. HOSPITALIST DR. LEON NOTIFIED, RECEIVED ORDER FOR MAG LEVEL THIS AM. WILL CONT TO MONITOR PT.
--- NOTE | 2020-05-22 04:19 | NUR ---
SHIFT SUMMARY- PT. A&O, PLEASANT, AND COOPERATIVE WITH CARE. NO COMPLAINTS DURING THE NIGHT, SLEPT ON/OFF T/O THE SHIFT, NO APPARENT DISTRESS NOTED. RECEIVING DIGOXIN IV, TOLERATING WELL. HR STABLE DURING THE NIGHT. HAD 6 BEAT RUN OF V TACH, DENIED CP OR ANY OTHER SX'S (SEE NURSE NOTE). ON 2L NC, VSS. CARDIOLOGY CONSULT IN PLACE. PT. APPEARS TO BE RESTING COMFORTABLY IN BED. CALL LIGHT WITHIN REACH AND SIDE RAILS UP X2. WILL CONT TO MONITOR.
[2020-05-22 05:05] LABS: Hematocrit 29.2 % (37.0-53.0); Hemoglobin 9.6 g/dL (13.5-17.5); LYMPHOCYTES ABSOLUTE AUTO 0.15 K/mm3 (0.84-5.20); LYMPHOCYTES PERCENT AUTO 1 % (21-46); MONOCYTES ABSOLUTE AUTO 0.79 K/mm3 (0.16-1.47); MONOCYTES PERCENT AUTO 5 % (4-13); Mean Corpuscular HGB Conc 32.9 g/dL (31.5-36.5); Mean Corpuscular Volume 97 fL (80-100); Mean Platelet Volume 10.8 fL (9.1-12.4); Platelet Count 122 K/mm3 (150-400); RDW Standard Deviation 57.2 fL (35.1-46.3); White Blood Cell Count 15.34 K/mm3 (4.00-11.30)
[2020-05-22 05:21] LABS: Anion Gap 3 mmol/L (6-16); Blood Urea Nitrogen 19 mg/dL (8-24); Bun/Creatinine Ratio 31.9 (12.0-20.0); CO2, Blood 32 mmol/L (21-32); Calcium, Blood 8.3 mg/dL (8.5-10.1); Chloride, Blood 100 mmol/L (98-108); Glomerular Filtration Rate >60 (60-); Glucose, Blood 90 mg/dL (70-99); Magnesium, Blood 1.5 mg/dL (1.6-2.4); Potassium, Blood 4.3 mmol/L (3.5-5.5); Sodium, Blood 135 mmol/L (136-145)
[2020-05-22 05:35] LABS: BASOPHILS ABSOLUTE AUTO 0.04 K/mm3 (0.00-0.23); BASOPHILS PERCENT AUTO 0 % (0-2); EOSINOPHILS PERCENT AUTO 1 % (0-6); IMMATURE GRAN ABSOLUTE AUTO 0.18 K/mm3 (0.00-0.10); IMMATURE GRAN PERCENT AUTO 1 % (0-1); NEUTROPHILS ABSOLUTE AUTO 13.98 K/mm3 (1.96-9.15); NEUTROPHILS PERCENT AUTO 91 % (41-73)
--- NOTE | 2020-05-22 06:31 | NUR ---
@0534- NOTIFIED BY TELE PT. HAD ANOTHER 5 BEAT RUN OF V TACH. RETURNED TO SR W/PVC'S AND HR 74. PT. ASYMPTOMATIC, ASLEEP IN BED, NO APPARENT DISTRESS NOTED. DR. LEON MADE AWARE, RECEIVED ORDER FOR MAG 1GM. WILL CONT TO MONITOR.
--- NOTE | 2020-05-22 18:19 | NUR ---
SHIFT SUMMARY PT IS A&O AND ABLE TO MAKE NEEDS KNOWN. PT IS INDEPENDENT IN ROOM. PT DENIES P/N/V DRUING SHIFT. PT IS THREE AFFILIATED AND WEARS A HEARING AID. PT HAS BEEN PLEASANT AND ACCEPTING OF CARE DURING SHIFT. JOSE CRUZ'S DAUGHTER CAME IN AND WANTED TO KNOW RESULTS OF ECHO. INFORMED DAUGHTER THAT DR WILL NEED TO RELEASE RESULTS TO THEM. DR CALLED AND MADE AWARE OF DAUGHTERS WISHES. DAUGHTER WOULD ALSO LIKE TO BE PRESENT WHEN DISCHARGE PACKET IS REVIEWED WITH PT. RECEIVED UPDATES FROM PCU CREELER T/O SHIFT. PT WAS 100'S AFIB WITH PVC DURING MOST OF THE SHIFT BUT CONVERED TO SR IN THE EVENING. PT CURENTLY IN ROOM RESTING. CALL LIGHT W/IN REACH.
[2020-05-23 06:20] LABS: Hematocrit 31.5 % (37.0-53.0); Hemoglobin 10.7 g/dL (13.5-17.5); Mean Corpuscular HGB 32.3 pg (26.0-34.0); Mean Corpuscular Volume 95 fL (80-100); Mean Platelet Volume 10.4 fL (9.1-12.4); Platelet Count 114 K/mm3 (150-400); RDW Coefficient Variation 15.9 % (11.7-14.2); RDW Standard Deviation 55.6 fL (35.1-46.3); Red Blood Cell Count 3.31 M/mm3 (4.30-5.90); White Blood Cell Count 8.68 K/mm3 (4.00-11.30)
[2020-05-23 06:37] LABS: Anion Gap 4 mmol/L (6-16); Blood Urea Nitrogen 16 mg/dL (8-24); Bun/Creatinine Ratio 28.2 (12.0-20.0); CO2, Blood 32 mmol/L (21-32); Chloride, Blood 98 mmol/L (98-108); Creatinine, Blood 0.57 mg/dL (0.60-1.20); Glomerular Filtration Rate >60 (60-); Glucose, Blood 95 mg/dL (70-99); Potassium, Blood 4.3 mmol/L (3.5-5.5); Sodium, Blood 134 mmol/L (136-145)
[2020-05-23 06:47] LABS: BAND PERCENT MAN 4 % (0-8); BASOPHILS PERCENT MAN 0 % (0-2); EOSINOPHILS ABSOLUTE MAN 0.26 K/mm3 (0.00-0.68); EOSINOPHILS PERCENT MAN 3 % (0-6); LYMPHOCYTES ABSOLUTE MAN 0.52 K/mm3 (0.84-5.20); LYMPHOCYTES PERCENT MAN 6 % (21-46); MONOCYTES ABSOLUTE MAN 0.69 K/mm3 (0.16-1.47); MONOCYTES PERCENT MAN 8 % (4-13); SEG NEUTROPHILS PERCENT MAN 79 % (41-73); TOTAL CELLS COUNTED 100
--- NOTE | 2020-05-23 07:40 | NUR ---
SHIFT SUMMARY: A&OX4, VSS, MAINTAINS SATS 95% ON 2LNC. UP TO THE BATHROOM INDEPENDANTLY TO VOID. SMALL BM ON 05/20, REPORTS COMSTIPATION PROBLEMS SINCE STARTING CHEMO.
[2020-05-23] MEDS ORDERED: ATOR20 PO (11:28)
[2020-05-23] MEDS ORDERED: ACET325 PO (11:28)
[2020-05-23] MEDS ORDERED: DOCU100 PO (11:29)
[2020-05-23] MEDS ORDERED: ELIQUIS2.5 MG PO (11:29)
[2020-05-23] MEDS ORDERED: FURO40 PO (11:29)
[2020-05-23] MEDS ORDERED: Q-Tussin100 MG/5 M PO (11:30)
[2020-05-23] MEDS ORDERED: METO25ER PO (11:31)
[2020-05-23] MEDS ORDERED: POTA10T PO (11:32)
--- NOTE | 2020-05-23 15:41 | NUR ---
PT DISCHARGED FROM THE UNIT, IV REMOVED, DISCHARGE INSTRUCTIONS REVIEWED WITH PT AND DAUGHTER. FOLLOW UP APTS SCHEDULED AND REVIEWED. MEDICATIONS FAXED TO [facility]. PT LEFT UNIT VIA WHEEL CHAIR AT 1541. DAUGHTER TO DRIVE HOME.
== END 2020-05-23 15:30 | disposition home or self-care (01) | DRG 308 ==
LOC: ER 14:15 → MEDS 16:30 → PCU 16:30 → MEDS 05-21 13:15
PROVIDERS: Emergency Medicine; Internal Medicine; ADMIT Internal Medicine
DX: I48.91 Unspecified atrial fibrillation (principal); I50.43 Acute on chronic combined systolic (congestive) and diastolic (congestive) heart failure; C34.90 Malignant neoplasm of unspecified part of unspecified bronchus or lung; J81.1 Chronic pulmonary edema; E22.2 Syndrome of inappropriate secretion of antidiuretic hormone; I11.0 Hypertensive heart disease with heart failure; E83.42 Hypomagnesemia; E78.5 Hyperlipidemia, unspecified; F32.9 Major depressive disorder, single episode, unspecified; I27.20 Pulmonary hypertension, unspecified; J44.9 Chronic obstructive pulmonary disease, unspecified; K21.9 Gastro-esophageal reflux disease without esophagitis; N40.0 Benign prostatic hyperplasia without lower urinary tract symptoms; Z87.891 Personal history of nicotine dependence; Z92.21 Personal history of antineoplastic chemotherapy; Z92.3 Personal history of irradiation; D64.81 Anemia due to antineoplastic chemotherapy; I47.2 Ventricular tachycardia; I42.7 Cardiomyopathy due to drug and external agent
CPT/HCPCS: 36415; 71045; 80048; 80053; 81001; 82378; 83605; 83735; 83880; 84100; 84145; 84443; 84484; 85025; 85027; 87040; 93005; 93010; 94667; 94760; 94761; 96365; 96366; 96375; 96376; 99285-25; A9270; C8929; J1160; J1650; J1940; J2405; J3475; J7050; Q9957

== ENCOUNTER 2020-06-16 13:54 | Inpatient (IN) | payer MEDICARE ==
[~2020-06-16] VITALS: Ht 170.2 cm; Wt 81.7 kg
[~2020-06-16 13:54] MED LIST changes: +ACET325 PO; +ATOR20 PO; +DOCU100 PO; +ELIQUIS2.5 MG PO; +LOSARTAN POTAS100 M1 PO; +METO25ER PO; +POTA10T PO; +Simvastatin20 MG PO; +TAMSULOSIN HCL0.4 M1 PO; +VITAMIN D31000 UNI1 PO; +[UNRECOGNIZED DRUG - REMARK] PO
[2020-06-16 14:41] LABS: Hematocrit 34.9 % (37.0-53.0); Hemoglobin 11.9 g/dL (13.5-17.5); Mean Corpuscular HGB 33.7 pg (26.0-34.0); Mean Corpuscular HGB Conc 34.1 g/dL (31.5-36.5); Mean Corpuscular Volume 99 fL (80-100); Mean Platelet Volume 9.6 fL (9.1-12.4); Platelet Count 168 K/mm3 (150-400); RDW Coefficient Variation 17.6 % (11.7-14.2); Red Blood Cell Count 3.53 M/mm3 (4.30-5.90); White Blood Cell Count 44.02 K/mm3 (4.00-11.30)
[2020-06-16 15:00] LABS: Alanine Aminotransfer (ALT/SGP 18 U/L (12-78); Albumin, Blood 3.1 g/dL (3.4-5.0); Alk Phos 52 U/L (50-136); Anion Gap 7 mmol/L (6-16); Aspartate Aminotrans (AST/SGOT 17 U/L (12-37); Bilirubin, Total 0.8 mg/dL (0.1-1.0); Blood Urea Nitrogen 24 mg/dL (8-24); Bun/Creatinine Ratio 35.2 (12.0-20.0); CO2, Blood 24 mmol/L (21-32); Calcium, Blood 8.7 mg/dL (8.5-10.1); Chloride, Blood 100 mmol/L (98-108); Creatinine, Blood 0.68 mg/dL (0.60-1.20); Globulin, Blood 3.2 g/dL (2.2-4.0); Glomerular Filtration Rate >60 (60-); Glucose, Blood 88 mg/dL (70-99); Potassium, Blood 4.1 mmol/L (3.5-5.5); Sodium, Blood 131 mmol/L (136-145); Total Protein, Blood 6.3 g/dL (6.4-8.2); Troponin I 0.016 ng/mL (0.000-0.040)
[2020-06-16 15:03] LABS: BAND PERCENT MAN 1 % (0-8); BASOPHILS PERCENT MAN 0 % (0-2); EOSINOPHILS PERCENT MAN 0 % (0-6); LYMPHOCYTES ABSOLUTE MAN 1.76 K/mm3 (0.84-5.20); LYMPHOCYTES PERCENT MAN 4 % (21-46); MONOCYTES ABSOLUTE MAN 0.44 K/mm3 (0.16-1.47); MONOCYTES PERCENT MAN 1 % (4-13); NEUTROPHILS ABSOLUTE MAN 41.81 K/mm3 (1.96-9.15); SEG NEUTROPHILS PERCENT MAN 94 % (41-73); TOTAL CELLS COUNTED 100
[2020-06-16] MEDS ORDERED: ALBU90OI INH (16:53)
--- NOTE | 2020-06-16 18:33 | NUR ---
PT ARRIVED TO PCU 12 VIA GURNEY FROM ED. HE IS ABLE TO STAND AND TRANSFER HIMSELF TO THE BED, AND AMBULATED TO THE BATHROOM INDEP, HE WAS ORIENTED TO ROOM LAYOUT AND CALL SYSTEM, AND INSTRUCTED TO CALL FOR ASSISTANCE BEFORE GETTING OOB, A/OX3, STANDING [place], PLEASANT AND COOPERATIVE WITH CARE, FOLLOWS COMMANDS WELL, DENIES PAIN OR SOB, LUNGS ARE CLEAR T/O, RESP EVEN AND UNLABORED, NO COUGH NOTED, HRIRR, TELE IN PLACE RUNNING AFIB WITH RVR PER MONITOR, SEE STRIP, NO EDEMA NOTED, PPP FAINT, CAP REFILL <3SEC, VS STABLE, AFEBRILE, IV SITE IS CLEAR AND PATENT, BTX4, ABD FLAT SOFT NONTENDER, VOIDS WITHOUT DIFF, SKIN HAS SOME BRUISING, AND A WOUND TO RIGHT SIDE OF FOREHEAD 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
--- NOTE | 2020-06-16 19:15 | NUR ---
ASSUMED CARE RECEIVED BEDSIDE REPORT FROM BONY LOVETT RN; PT A&O X 4; VSS; HR ELEVATED W/ AFIB ON TELE; O2 SATS >93 ON RA; PT SITTING IN BED EATING DINNER; NO DISTRESS NOTED; CALL LIGHT IN REACH; BED IN LOWEST POSITION.
--- NOTE | 2020-06-16 20:05 | NUR ---
NOTIFIED RT OF PT CONCERN OF COUGH AND STATES HE TAKES INHALER AT BASELINE; RT AT BEDSIDE TO ASSESS; RT STATES PT SOUNDS CLEAR; BELIEVED SOB IS R/T HR AND AFIB; EXPRESSIVE THERAPIST TO PLACE CALL TO HOSPITALIST.
--- NOTE | 2020-06-16 20:47 | NUR ---
CALL TO MD CALLED DR. BERGER AND SPOKE AT LENGTH ABOUT CURRENT CONCERNS. PT IS C/O SHORTNESS OF BREATH, REQUESTING HIS ALBUTEROL INHALER. HR IS 120'S TO 130'S AND IS AFIB ON TELE. RECENT BP WAS 98/58. DISCUSSED PLAN TO MANAGE HR WHILE MONITORING BP, PT HAS AN ELEVATED BNP AND 39% EF ON RECENT ECHO SO FLUIDS ARE NOT A GOOD OPTION TO CORRECT HYPOTENSION FOR THIS PATIENT. PER RT EVAL, PT CURRENTLY HAS CLEAR LUNG SOUNDS WITH GOOD AIR MOVEMENT AND A NEB WOULD NOT BE INDICATED. PT IS LIKELY SHORT OF BREATH DUE TO HIGH HEART RATE. WILL ENCOURAGE PT TO REST IN BED RECENT WALK TO THE [facility]. UPDATED PRIMARY RN (MICHEL) WITH DETAILS OF PHONE CALL AND PLAN TO ADMINISTER ANOTHER DOSE OF DIGOXIN. WILL CONTINUE TO ASSIST IN CARE NEEDED.
--- NOTE | 2020-06-16 21:15 | NUR ---
UPDATE PT BP 88/46 W/ HR 95; NOTIFIED ; NEW ORDER GIVEN FOR 250 ML BOLUS FOR NS AND WILL ADMINISTER DIGOXIN; PT ASYMPTOMATIC; CALL LIGHT IN REACH; BED IN LOWEST POSITION.
--- NOTE | 2020-06-17 07:29 | NUR ---
SHIFT SUMMARY PT A&O X4; VSS; DENIES CHEST PAIN; O2 SATS >93 ON RA; C/O HEADACHE, ICE PACK BROUGHT TO PT WHICH HE STATED HELPED; TYLENOL OFFERED AND PT REFUSED; SLEPT A FEW HOURS IN BETWEEN INTERVENTIONS; AMBULATES TO BATHROOM W/ NO GAIT DISTURBANCES NOTED, AGE RELATED WEAKNESS; PT REQUEST TO SPEAK TO AND DAUGHTER REGARDING CODE STATUS; ATTEMPTED CALL TO DAUGHTER NAKIA, BUT WAS UNABLE REACH HER; NOTIFIED; CODE STATUS CHANGED TO FULL CODE UNTIL FURTHER DISCUSSION CAN TAKE PLACE; REPORT GIVEN TO BONY LOVETT RN; NO DISTRESS NOTED; CALL LIGHT IN REACH; BED IN LOWEST POSTION.
--- NOTE | 2020-06-17 08:28 | NUR ---
pt laying in bed awake a/ox3, pleasant and cooperative with care, denies any complaints of pain or sob, lungs sounds were course on right side all beard, clear on left, sats% 89%, had him sit up and cough, he was able to clear it, reports he has a lot of mucous at home, sats came up to 91%, hrirr, tele in place running afib in the one teens, but as soon as he moves around it increases to 140's up and down, no edema noted, ppp+1, cap refill <3 sec, v.s. stable, afebrile, iv site is clear and patent, btx4, had a bm last night, voids without diff, skin is pale, with a surgical wound to right side of forehead with steri strips in place, some bruising noted, maew, up ad lizett in room, gait noted to be steady, nhung, call light in reach.
[2020-06-17 09:39] LABS: Anion Gap 5 mmol/L (6-16); Blood Urea Nitrogen 22 mg/dL (8-24); Bun/Creatinine Ratio 31.6 (12.0-20.0); CO2, Blood 28 mmol/L (21-32); Calcium, Blood 8.7 mg/dL (8.5-10.1); Chloride, Blood 101 mmol/L (98-108); Glomerular Filtration Rate >60 (60-); Glucose, Blood 93 mg/dL (70-99); Magnesium, Blood 1.8 mg/dL (1.6-2.4); Sodium, Blood 134 mmol/L (136-145)
[2020-06-17 10:24] LABS: Anion Gap 5 mmol/L (6-16); Blood Urea Nitrogen 20 mg/dL (8-24); Bun/Creatinine Ratio 29.5 (12.0-20.0); CO2, Blood 30 mmol/L (21-32); Chloride, Blood 101 mmol/L (98-108); Creatinine, Blood 0.68 mg/dL (0.60-1.20); Glomerular Filtration Rate >60 (60-); Glucose, Blood 93 mg/dL (70-99); Sodium, Blood 136 mmol/L (136-145)
--- NOTE | 2020-06-17 13:09 | NUR ---
pt heart rate was up this am but has come down to the 90's to oneteens. pt resting in bed, no complaints or needs. call light in reach.
--- NOTE | 2020-06-17 18:26 | NUR ---
pt converted to sinus rhythm, doing ok, states he feels fine, no complaints or needs, had a shower this afternoon. call [facility] in reach.
--- NOTE | 2020-06-17 19:30 | NUR ---
ASSUMED CARE RECEIVED REPORT FROM BONY LOVETT RN; PT A&O X 4; VSS; CURRENTLY IN NSR; O2 SATS >93 ON RA; INDEPENDENT IN ROOM FOR BRP; CURRENTLY RESTING IN BED W/ NO DISTRESS NOTED; BELONGINGS AND CALL LIGHT IN REACH; BED IN LOWEST POSITION.
[2020-06-18 04:34] LABS: Anion Gap 5 mmol/L (6-16); Blood Urea Nitrogen 21 mg/dL (8-24); Bun/Creatinine Ratio 36.7 (12.0-20.0); CO2, Blood 30 mmol/L (21-32); Calcium, Blood 8.6 mg/dL (8.5-10.1); Chloride, Blood 101 mmol/L (98-108); Creatinine, Blood 0.57 mg/dL (0.60-1.20); Glomerular Filtration Rate >60 (60-); Glucose, Blood 101 mg/dL (70-99); Potassium, Blood 3.9 mmol/L (3.5-5.5); Sodium, Blood 136 mmol/L (136-145)
--- NOTE | 2020-06-18 05:26 | NUR ---
SHIFT SUMMARY PT A&O X 4; PLEASANT & COMPLIANT W/ CARE; DENIES CHEST PAIN; VSS; NSR W/ PVC & PAC ON TELE W/ HR IN 80'S - 90'S; INDEPENDENT FOR BRP, NO GAIT DISTURBANCES NOTED; SLEPT SEVERAL HOURS IN BETWEEN INTERVENTIONS; CALL LIGHT IN REACH; BED IN LOWEST POSITION; WILL CONTINUE TO MONITOR CLOSELY UNTIL HAND OFF TO DAY SHIFT RN.
[2020-06-18 08:04] LABS: Digoxin (Lanoxin) 0.64 ug/mL (0.80-2.00)
[2020-06-18] MEDS ORDERED: LANOXIN125 MCG PO (09:47)
[2020-06-18] MEDS ORDERED: Q-Tussin100 MG/5 M PO (09:49)
--- NOTE | 2020-06-18 13:06 | NUR ---
Spiritual care visit conducted. Upon receiving an admit referral for spiritual care, I visit patient. Patient immediately tells me that he will DC soon. He shares about his the current issues that led to his hospitalization and about his whitlock against lung cancer. He talks about his chemo and radiation therapies and how he fears that all the effort will not lead to a turn around in his diagnosis. He explains about his small but good support system including his of 70yrs. He also tells me about his [employer] belief system and how he continues to gain comfort and strength from his concepcion. I listen empathically, explore sources that are stabalizing and hopeful, and provide pastoral adolescent counselor and prayer. Patient responds well and shows signs of increased hope and voices appreciation for the visit. I will continue to remain available to patient and family.
== END 2020-06-18 11:35 | disposition home or self-care (01) | DRG 308 ==
LOC: ER 13:54 → PCU 13:55
PROVIDERS: Emergency Medicine; ADMIT Internal Medicine
DX: I48.20 Chronic atrial fibrillation, unspecified (principal); J96.01 Acute respiratory failure with hypoxia; E87.1 Hypo-osmolality and hyponatremia; I50.22 Chronic systolic (congestive) heart failure; C34.90 Malignant neoplasm of unspecified part of unspecified bronchus or lung; N40.0 Benign prostatic hyperplasia without lower urinary tract symptoms; Z66 Do not resuscitate; J44.9 Chronic obstructive pulmonary disease, unspecified; I47.2 Ventricular tachycardia; I11.0 Hypertensive heart disease with heart failure; K21.9 Gastro-esophageal reflux disease without esophagitis; K44.9 Diaphragmatic hernia without obstruction or gangrene; Z87.891 Personal history of nicotine dependence; Z79.01 Long term (current) use of anticoagulants; Z88.0 Allergy status to penicillin
CPT/HCPCS: 36415; 71045; 80048; 80053; 80162; 83735; 83880; 84484; 85025; 93005; 93010; 96374; 96375; 96376; 99285-25; A9270; G0378; J0282; J1160; J7030; J7050

== ENCOUNTER → 2020-06-21 | Outpatient (CLI) | payer MEDICARE ==
[~2020-06-21] MED LIST changes: +ALBU90OI INH; +CEFP200 PO; +FINA5 PO; +IPRAT-ALBUT 0.5-3 ML INH; +LANOXIN125 MCG PO; +PROBIOTIC1 EA13
[2020-06-21 15:20] LABS: Source, Urine Clean Catch
[2020-06-21 15:51] LABS: Appearance, Urine Clear (Clear); Bilirubin, Urine Neg (Neg); Blood, Urine 3+ (Neg); Color, Urine Yellow (P-Yellow); Glucose Qualitative, Urine Neg (Neg); Ketones, Urine Neg (Neg); Leukocyte Esterase, Urine Neg (Neg); Nitrite, Urine Neg (Neg); Protein, Urine 2+ (Neg); Specific Gravity, Urine 1.015 (1.003-1.022); Urobilinogen, Urine NORM (Normal)
[2020-06-21 15:58] LABS: White Blood Cells, Urine 0-2 /hpf (0-5)
[2020-06-21 15:59] LABS: Bacteria Rare /hpf; Red Blood Cells, Urine 25-50 /hpf (0-2); Renal Epithelial Rare /hpf (0-Rare); Squamous Epithelial Cells Not Seen /hpf (Few)
== END | disposition home or self-care (01) ==
LOC: LAB SHORT 15:19 → LAB 15:19
PROVIDERS: Nurse Practitioner
DX: R30.0 Dysuria (principal)
CPT/HCPCS: 81001; 87086; 88108

== ENCOUNTER 2020-06-26 14:30 | Emergency (ER) | payer MEDICARE ==
[~2020-06-26] VITALS: Ht 172.7 cm; Wt 81.7 kg
[~2020-06-26 14:30] MED LIST changes: -CEFP200 PO; -FINA5 PO; -IPRAT-ALBUT 0.5-3 ML INH; -PROBIOTIC1 EA13
[2020-06-26 15:38] LABS: Hematocrit 30.4 % (37.0-53.0); Hemoglobin 10.5 g/dL (13.5-17.5); Mean Corpuscular HGB 34.4 pg (26.0-34.0); Mean Corpuscular HGB Conc 34.5 g/dL (31.5-36.5); Mean Corpuscular Volume 100 fL (80-100); Mean Platelet Volume 10.7 fL (9.1-12.4); Platelet Count 88 K/mm3 (150-400); RDW Coefficient Variation 17.2 % (11.7-14.2); RDW Standard Deviation 62.5 fL (35.1-46.3); Red Blood Cell Count 3.05 M/mm3 (4.30-5.90)
[2020-06-26 15:59] LABS: Alanine Aminotransfer (ALT/SGP 15 U/L (12-78); Albumin, Blood 3.5 g/dL (3.4-5.0); Albumin/Globulin Ratio 1.1 (0.8-1.8); Alk Phos 75 U/L (50-136); Anion Gap 10 mmol/L (6-16); Aspartate Aminotrans (AST/SGOT 11 U/L (12-37); Bilirubin, Total 0.4 mg/dL (0.1-1.0); Blood Urea Nitrogen 6 mg/dL (8-24); Bun/Creatinine Ratio 9.9 (12.0-20.0); CO2, Blood 27 mmol/L (21-32); Chloride, Blood 100 mmol/L (98-108); Creatinine, Blood 0.61 mg/dL (0.60-1.20); Globulin, Blood 3.3 g/dL (2.2-4.0); Glomerular Filtration Rate >60 (60-); Glucose, Blood 116 mg/dL (70-99); Potassium, Blood 3.2 mmol/L (3.5-5.5); Sodium, Blood 137 mmol/L (136-145); Total Protein, Blood 6.8 g/dL (6.4-8.2); Troponin I 0.016 ng/mL (0.000-0.040)
[2020-06-26 16:16] LABS: BAND PERCENT MAN 13 % (0-8); BASOPHILS PERCENT MAN 0 % (0-2); EOSINOPHILS PERCENT MAN 0 % (0-6); LYMPHOCYTES ABSOLUTE MAN 0.68 K/mm3 (0.84-5.20); LYMPHOCYTES PERCENT MAN 8 % (21-46); METAMYELOCYTE ABSOLUTE MAN 0.08 K/mm3 (0.00-0.00); METAMYELOCYTE PERCENT MAN 1 % (0-0); MONOCYTES ABSOLUTE MAN 0.94 K/mm3 (0.16-1.47); MONOCYTES PERCENT MAN 11 % (4-13); NEUTROPHILS ABSOLUTE MAN 6.88 K/mm3 (1.96-9.15); SEG NEUTROPHILS PERCENT MAN 67 % (41-73); TOTAL CELLS COUNTED 100
== END 2020-06-26 17:20 | disposition home or self-care (01) ==
LOC: ER 14:30
PROVIDERS: Physician Assistant
DX: T17.990A Other foreign object in respiratory tract, part unspecified in causing asphyxiation, initial encounter (principal); K20.80 Other esophagitis without bleeding; Z79.01 Long term (current) use of anticoagulants; Z79.899 Other long term (current) drug therapy
CPT/HCPCS: 71046; 74220; 80053; 84484; 85025; 93005; 93010; 99284-25

== ENCOUNTER 2020-09-14 20:55 | Inpatient (IN) | payer MEDICARE ==
[~2020-09-14] VITALS: Ht 170.2 cm; Wt 84.0 kg
[2020-09-14 22:11] LABS: BASOPHILS ABSOLUTE AUTO 0.02 K/mm3 (0.00-0.23); BASOPHILS PERCENT AUTO 0 % (0-2); EOSINOPHILS ABSOLUTE AUTO 0.01 K/mm3 (0.00-0.68); EOSINOPHILS PERCENT AUTO 0 % (0-6); Hematocrit 40.3 % (37.0-53.0); Hemoglobin 13.9 g/dL (13.5-17.5); IMMATURE GRAN ABSOLUTE AUTO 0.02 K/mm3 (0.00-0.10); IMMATURE GRAN PERCENT AUTO 0 % (0-1); LYMPHOCYTES ABSOLUTE AUTO 0.33 K/mm3 (0.84-5.20); LYMPHOCYTES PERCENT AUTO 5 % (21-46); MONOCYTES PERCENT AUTO 10 % (4-13); Mean Corpuscular HGB 32.3 pg (26.0-34.0); Mean Corpuscular HGB Conc 34.5 g/dL (31.5-36.5); Mean Corpuscular Volume 94 fL (80-100); Mean Platelet Volume 9.9 fL (9.1-12.4); NEUTROPHILS ABSOLUTE AUTO 6.15 K/mm3 (1.96-9.15); NEUTROPHILS PERCENT AUTO 85 % (41-73); Platelet Count 193 K/mm3 (150-400); RDW Coefficient Variation 12.6 % (11.7-14.2); RDW Standard Deviation 43.5 fL (35.1-46.3); White Blood Cell Count 7.23 K/mm3 (4.00-11.30)
[2020-09-14 22:29] LABS: Alanine Aminotransfer (ALT/SGP 27 U/L (12-78); Albumin, Blood 3.7 g/dL (3.4-5.0); Albumin/Globulin Ratio 0.9 (0.8-1.8); Alk Phos 55 U/L (50-136); Anion Gap 6 mmol/L (6-16); Aspartate Aminotrans (AST/SGOT 25 U/L (12-37); Bilirubin, Total 0.6 mg/dL (0.1-1.0); Blood Urea Nitrogen 11 mg/dL (8-24); Bun/Creatinine Ratio 13.2 (12.0-20.0); CO2, Blood 25 mmol/L (21-32); Calcium, Blood 9.2 mg/dL (8.5-10.1); Chloride, Blood 99 mmol/L (98-108); Creatinine, Blood 0.83 mg/dL (0.60-1.20); Glomerular Filtration Rate >60 (60-); Glucose, Blood 126 mg/dL (70-99); Potassium, Blood 3.9 mmol/L (3.5-5.5); Sodium, Blood 130 mmol/L (136-145); Total Protein, Blood 7.7 g/dL (6.4-8.2)
[2020-09-15 01:23] LABS: Source, Urine Clean Catch
[2020-09-15 01:26] LABS: Bilirubin, Urine Neg (Neg); Blood, Urine 1+ (Neg); Glucose Qualitative, Urine Neg (Neg); Ketones, Urine 2+ (Neg); Leukocyte Esterase, Urine 2+ (Neg); Nitrite, Urine Neg (Neg); Protein, Urine 2+ (Neg); Urobilinogen, Urine 1+ (Normal)
[2020-09-15 01:33] LABS: Appearance, Urine Clear (Clear); Color, Urine Yellow (P-Yellow)
[2020-09-15 01:34] LABS: Bacteria Many /hpf; Red Blood Cells, Urine 0-2 /hpf (0-2); Squamous Epithelial Cells Few /hpf (Few); White Blood Cells, Urine 25-50 /hpf (0-5)
[2020-09-15] MEDS ORDERED: OMEP20ER PO (02:27)
[2020-09-15] MEDS ORDERED: FINA5 PO (02:28)
[2020-09-15 03:22] LABS: Digoxin (Lanoxin) 0.83 ug/mL (0.80-2.00)
--- NOTE | 2020-09-15 04:23 | NUR ---
SHIFT SUMMARY: PT ADMITTED TO MEDICAL UNIT FROM ED FOR UTI. AAOX3. [place]. BED ALARM PLACED DUE TO RECENT INCREASE IN WEAKNESS W/UTI. ENCOURAGED PT TO CALL FOR ASSIST WHEN NEEDING TO GET UP OOB. CALL BUTTON PLACED IN REACH. PT DENIES PAIN AT THIS TIME. IV FLUIDS INFUSING PER ORDERS. NSR W/ PVC'S, 80 PER BONING ROOM WORKER. PT REPORTS NEEDING HONEY THICK LIQUIDS AND PILLS CRUSHED DUE TO DYSPHAGIA AFTER RECENT RADIATION AFFECTING ABILITY TO SWALLOW. WCTM.
--- NOTE | 2020-09-15 05:57 | NUR ---
WHEN REVIEWING CODE STATUS W/ PT TO PLACE DNR BAND PER POLICY, PT STATES HE WOULD LIKE TO BE RESUSCITATED. SPOKE W/HOSPITALIST, DR. BUCKNER. CODE STATUS UPDATED TO FULL PER PT WISHES.
[2020-09-15 10:30] LABS: BASOPHILS ABSOLUTE AUTO 0.02 K/mm3 (0.00-0.23); BASOPHILS PERCENT AUTO 0 % (0-2); EOSINOPHILS ABSOLUTE AUTO 0.01 K/mm3 (0.00-0.68); EOSINOPHILS PERCENT AUTO 0 % (0-6); Hematocrit 37.2 % (37.0-53.0); Hemoglobin 12.8 g/dL (13.5-17.5); IMMATURE GRAN ABSOLUTE AUTO 0.01 K/mm3 (0.00-0.10); IMMATURE GRAN PERCENT AUTO 0 % (0-1); LYMPHOCYTES ABSOLUTE AUTO 0.28 K/mm3 (0.84-5.20); LYMPHOCYTES PERCENT AUTO 4 % (21-46); MONOCYTES ABSOLUTE AUTO 0.45 K/mm3 (0.16-1.47); MONOCYTES PERCENT AUTO 7 % (4-13); Mean Corpuscular HGB 32.6 pg (26.0-34.0); Mean Corpuscular HGB Conc 34.4 g/dL (31.5-36.5); Mean Corpuscular Volume 95 fL (80-100); Mean Platelet Volume 9.9 fL (9.1-12.4); NEUTROPHILS ABSOLUTE AUTO 6.08 K/mm3 (1.96-9.15); NEUTROPHILS PERCENT AUTO 89 % (41-73); Platelet Count 176 K/mm3 (150-400); RDW Coefficient Variation 12.7 % (11.7-14.2); RDW Standard Deviation 44.3 fL (35.1-46.3); Red Blood Cell Count 3.93 M/mm3 (4.30-5.90); White Blood Cell Count 6.85 K/mm3 (4.00-11.30)
[2020-09-15 10:48] LABS: Alanine Aminotransfer (ALT/SGP 24 U/L (12-78); Albumin, Blood 3.2 g/dL (3.4-5.0); Albumin/Globulin Ratio 0.8 (0.8-1.8); Alk Phos 49 U/L (50-136); Anion Gap 6 mmol/L (6-16); Aspartate Aminotrans (AST/SGOT 18 U/L (12-37); Bilirubin, Total 0.5 mg/dL (0.1-1.0); Blood Urea Nitrogen 11 mg/dL (8-24); Bun/Creatinine Ratio 13.1 (12.0-20.0); CO2, Blood 25 mmol/L (21-32); Calcium, Blood 8.8 mg/dL (8.5-10.1); Chloride, Blood 101 mmol/L (98-108); Creatinine, Blood 0.84 mg/dL (0.60-1.20); Globulin, Blood 3.8 g/dL (2.2-4.0); Glomerular Filtration Rate >60 (60-); Glucose, Blood 203 mg/dL (70-99); Potassium, Blood 3.9 mmol/L (3.5-5.5); Sodium, Blood 132 mmol/L (136-145)
--- NOTE | 2020-09-15 15:08 | NUR ---
PT HR BECAME ELEVATED. DR. ROSADO CALLED. EKG PREFORMED. PT WAS TRANSFERED TO PCU AND WILL BE PLACED ON A CARDIAC DRIP.
[2020-09-15 16:23] LABS: BASOPHILS ABSOLUTE AUTO 0.02 K/mm3 (0.00-0.23); BASOPHILS PERCENT AUTO 0 % (0-2); EOSINOPHILS PERCENT AUTO 0 % (0-6); Hemoglobin 13.1 g/dL (13.5-17.5); IMMATURE GRAN ABSOLUTE AUTO 0.04 K/mm3 (0.00-0.10); IMMATURE GRAN PERCENT AUTO 0 % (0-1); LYMPHOCYTES ABSOLUTE AUTO 0.15 K/mm3 (0.84-5.20); LYMPHOCYTES PERCENT AUTO 1 % (21-46); MONOCYTES ABSOLUTE AUTO 0.55 K/mm3 (0.16-1.47); MONOCYTES PERCENT AUTO 5 % (4-13); Mean Corpuscular HGB 33.2 pg (26.0-34.0); Mean Corpuscular HGB Conc 35.4 g/dL (31.5-36.5); Mean Corpuscular Volume 94 fL (80-100); Mean Platelet Volume 9.7 fL (9.1-12.4); NEUTROPHILS ABSOLUTE AUTO 10.15 K/mm3 (1.96-9.15); NEUTROPHILS PERCENT AUTO 93 % (41-73); Platelet Count 174 K/mm3 (150-400); RDW Coefficient Variation 12.6 % (11.7-14.2); Red Blood Cell Count 3.94 M/mm3 (4.30-5.90); White Blood Cell Count 10.91 K/mm3 (4.00-11.30)
[2020-09-15 16:36] LABS: International Normalized Ratio 1.11; Prothrombin Time Results 11.9 Sec (9.7-11.5)
--- NOTE | 2020-09-15 18:13 | NUR ---
SHIFT SUMMARY; ASSUMED CARE AT 1600 TO PCU FROM MEDICAL FLOOR. A/A/OX4. TEMP OF 103 ON ARRIVAL. LR STARTED PER ORDERS, FAN AND COOL WASH CLOTH PROVIDED. VSS, BLOOD CULTURES AND LACTIC DRAWN. LR AT 75ML/HR FOLLOWING 1L BOLUS. TEMP DECREASED TO 98.2 AT THIS TIME, WILL CONTINUE TO MONITOR AND TREAT UNTIL CHANGE OF SHIFT.
[2020-09-15 21:30] LABS: SARS-Cov-2 (COVID-19) PCR, MMC NEGATIVE (NEGATIVE)
[2020-09-16 00:14] LABS: Source, Urine Catheter
[2020-09-16 00:19] LABS: Appearance, Urine Clear (Clear); Bilirubin, Urine Neg (Neg); Blood, Urine 2+ (Neg); Color, Urine Amber (P-Yellow); Glucose Qualitative, Urine Neg (Neg); Ketones, Urine 2+ (Neg); Leukocyte Esterase, Urine 2+ (Neg); Nitrite, Urine Neg (Neg); Protein, Urine 2+ (Neg); Specific Gravity, Urine 1.015 (1.003-1.022); Urobilinogen, Urine NORM (Normal)
[2020-09-16 00:32] LABS: Bacteria Many /hpf; Mucus Light (0-Heavy); Red Blood Cells, Urine 0-2 /hpf (0-2); Squamous Epithelial Cells Not Seen /hpf (Few); White Blood Cells, Urine 50-100 /hpf (0-5)
[2020-09-16 03:55] LABS: BASOPHILS ABSOLUTE AUTO 0.02 K/mm3 (0.00-0.23); BASOPHILS PERCENT AUTO 0 % (0-2); EOSINOPHILS PERCENT AUTO 0 % (0-6); Hematocrit 31.7 % (37.0-53.0); IMMATURE GRAN ABSOLUTE AUTO 0.03 K/mm3 (0.00-0.10); IMMATURE GRAN PERCENT AUTO 0 % (0-1); LYMPHOCYTES ABSOLUTE AUTO 0.53 K/mm3 (0.84-5.20); LYMPHOCYTES PERCENT AUTO 5 % (21-46); MONOCYTES ABSOLUTE AUTO 1.17 K/mm3 (0.16-1.47); MONOCYTES PERCENT AUTO 11 % (4-13); Mean Corpuscular HGB Conc 34.7 g/dL (31.5-36.5); Mean Corpuscular Volume 95 fL (80-100); Mean Platelet Volume 10.4 fL (9.1-12.4); NEUTROPHILS ABSOLUTE AUTO 8.86 K/mm3 (1.96-9.15); NEUTROPHILS PERCENT AUTO 84 % (41-73); Platelet Count 152 K/mm3 (150-400); RDW Coefficient Variation 12.7 % (11.7-14.2); RDW Standard Deviation 44.4 fL (35.1-46.3); Red Blood Cell Count 3.33 M/mm3 (4.30-5.90); White Blood Cell Count 10.61 K/mm3 (4.00-11.30)
[2020-09-16 04:26] LABS: Alanine Aminotransfer (ALT/SGP 20 U/L (12-78); Albumin, Blood 2.7 g/dL (3.4-5.0); Albumin/Globulin Ratio 0.8 (0.8-1.8); Alk Phos 38 U/L (50-136); Anion Gap 7 mmol/L (6-16); Aspartate Aminotrans (AST/SGOT 26 U/L (12-37); Bilirubin, Total 0.5 mg/dL (0.1-1.0); Blood Urea Nitrogen 12 mg/dL (8-24); Bun/Creatinine Ratio 16.7 (12.0-20.0); CO2, Blood 25 mmol/L (21-32); Calcium, Blood 8.1 mg/dL (8.5-10.1); Chloride, Blood 99 mmol/L (98-108); Creatinine, Blood 0.72 mg/dL (0.60-1.20); Digoxin (Lanoxin) 0.73 ug/mL (0.80-2.00); Globulin, Blood 3.3 g/dL (2.2-4.0); Glomerular Filtration Rate >60 (60-); Glucose, Blood 150 mg/dL (70-99); Potassium, Blood 3.5 mmol/L (3.5-5.5); Sodium, Blood 131 mmol/L (136-145)
--- NOTE | 2020-09-16 05:45 | NUR ---
SHIFT SUMMARY PT REMAINED STABLE DURING THE SHIFT. AT 0330, PT HAD A 4-5 BEAT RUN OF SVT. OTHER THAN THAT PT WAS MONITORED VIA TELEMETRY AT [facility] WITH A 1ST DEGREE HEART BLOCK, PER MOBILE SECURITY SPECIALIST. HE SATED BETWEEN 88 - 94% ON 4 L VIA NC. HE WAS SOB WHEN REPOSITIONING HIMSELF IN BED. DENIES CHEST PAIN. HE USUALLY CALLS APPOPRIATELY, AND IS ABLE TO USE CALL LIGHT. BED ALARM ON FOR SAFETY. HE VOIDS USING THE URINAL. WILL CONTINUE TO MONITOR.
--- NOTE | 2020-09-16 11:34 | NUR ---
meeting with family this afternoon to complete a new polst and will review a plan of care.
--- NOTE | 2020-09-16 15:05 | NUR ---
daughter relayed to pt conversation about code status and life support. Review levels of care with patient and family and advised that we need to document your wishes. Daughter lead the conversation with pt on changes of CPR not being effective. Pt want to think about ait and discuss some more before he decides. His dughter encouraged him to pick DNR.
--- NOTE | 2020-09-16 17:35 | NUR ---
SHIFT SUMMARY; ASSUMED CARE AT 0700, REPORT FROM ILANA STERN. A/A/0X4 THROUGHOUT SHIFT. 5L 02 VIA NC TO MAINTAIN SATS OF 90%. L/S WHEEZY TO COARSE DURING SHIFT. BREATHING TREATMENTS PER EMAR. FLUIDS DC'D TODAY, STATUS CHANGED TO MEDICAL. CONTINUES TO HAVE PRODUCTIVE COUGH WITH THIN CLEAR SPUTUM. SAT IN CHAIR AT BEDSIDE FOR SEVERAL HOURS IN AFTERNOON. WILL CONTINUE TO MONITOR AND TREAT UNTIL CHANGE OF SHIFT.
--- NOTE | 2020-09-16 17:36 | NUR ---
pt sleeping will have blade try to speak to him again he is a ltttle distraught by the conversation.
--- NOTE | 2020-09-16 22:54 | NUR ---
1915: ASSUMED CARE FROM ILANA AGUIRRE. PT IS A&O X4, SATING ABOVE 90% ON 5LPM VIA NC. HE IS IN BED. CONNECTED TO TELEMETRY, SINUS RHYTHM AT 86. PT HAD A 9 BEAT RUN OF SVT AT 20:45, PER ARTIFICIAL LIMB MAKER REPORT. NO C/O CHEST PAIN. LUNG SOUNDS ARE DIMINISHED THROUGHOUT WITH EXPIRATORY WHEEZING NOTED ON THE RIGHT SIDE. PT HAS COUGHING FITS AFTER SWALLOWING HIS PILLS. DR. ROSADO'S NOTE INDICATES SPEECH EVAL PLANNED. PT TAKES PILLS CRUSHED IN APPLE SAUCE. HE PREFERS LIQUIDS THICKENED TO HONEY CONSISTENCY. NO STRAWS. CALL LIGHT IN HAND, WILL CONTINUE TO MONITOR. 22:08: SPOKE TO DAUGHTER NAKIA Nixon VIA TELEPHONE AND GAVE STATUS UPDATE ON PT CONDITION. DAUGHTER APPRECIATIVE.
[2020-09-17 04:12] LABS: BASOPHILS ABSOLUTE AUTO 0.01 K/mm3 (0.00-0.23); BASOPHILS PERCENT AUTO 0 % (0-2); EOSINOPHILS ABSOLUTE AUTO 0.03 K/mm3 (0.00-0.68); EOSINOPHILS PERCENT AUTO 1 % (0-6); Hematocrit 35.1 % (37.0-53.0); Hemoglobin 11.8 g/dL (13.5-17.5); IMMATURE GRAN ABSOLUTE AUTO 0.02 K/mm3 (0.00-0.10); IMMATURE GRAN PERCENT AUTO 0 % (0-1); LYMPHOCYTES ABSOLUTE AUTO 0.76 K/mm3 (0.84-5.20); LYMPHOCYTES PERCENT AUTO 12 % (21-46); MONOCYTES ABSOLUTE AUTO 1.32 K/mm3 (0.16-1.47); MONOCYTES PERCENT AUTO 20 % (4-13); Mean Corpuscular HGB 32.4 pg (26.0-34.0); Mean Corpuscular HGB Conc 33.6 g/dL (31.5-36.5); Mean Corpuscular Volume 96 fL (80-100); Mean Platelet Volume 10.7 fL (9.1-12.4); NEUTROPHILS ABSOLUTE AUTO 4.43 K/mm3 (1.96-9.15); NEUTROPHILS PERCENT AUTO 67 % (41-73); Platelet Count 154 K/mm3 (150-400); RDW Coefficient Variation 12.9 % (11.7-14.2); RDW Standard Deviation 45.7 fL (35.1-46.3); Red Blood Cell Count 3.64 M/mm3 (4.30-5.90); White Blood Cell Count 6.57 K/mm3 (4.00-11.30)
[2020-09-17 04:44] LABS: Anion Gap 7 mmol/L (6-16); Blood Urea Nitrogen 12 mg/dL (8-24); Bun/Creatinine Ratio 16.2 (12.0-20.0); CO2, Blood 25 mmol/L (21-32); Calcium, Blood 8.4 mg/dL (8.5-10.1); Chloride, Blood 100 mmol/L (98-108); Creatinine, Blood 0.74 mg/dL (0.60-1.20); Glomerular Filtration Rate >60 (60-); Glucose, Blood 98 mg/dL (70-99); Potassium, Blood 3.7 mmol/L (3.5-5.5); Sodium, Blood 132 mmol/L (136-145)
--- NOTE | 2020-09-17 07:29 | NUR ---
SHIFT SUMMARY NO ACUTE CHANGES, VSS STABLE. GAVE REPORT TO BOBBY DAY SHIFT RN.
--- NOTE | 2020-09-17 11:21 | NUR ---
TRANSFER ORDERS PLACED; GAVE REPORT TO ILANA CAMERON AT 1020 VIA PHONE; PT TRANSFERRED TO [facility] FLOOR ROOM 339 AT 1050; PT TRANSFERRED VIA WHEELCHAIR WITH PERSONAL EFFECTS (EXCEPT FOR CELL PHONE WHICH WE DID NOT SEE IN ROOM AND PT CANNOT REMEMBER WHEN HE LAST HAD IT), TELEMETRY MONITORING, NO IV THERAPY, AND 5LNC OXYGEN THERAPY; PT DENIED ADDITIONAL CONCERNS AT THIS TIME.
--- NOTE | 2020-09-17 15:56 | NUR ---
Attempted to see Pt. Pt is sitting up in chair and talking on the phone. Pt request this RN to return at a later time. Reviewed chart. Palliative Care will attempt to see Pt at a later time.
--- NOTE | 2020-09-17 18:23 | NUR ---
a+o, sitting up in chair,2L via nc, nonproductive cough, contintent, abx infusing into l hand 20g, 20g rac saline locked, enjoyed visit from niece, still no phone found, speculated he lost it last night in bed clothes looked in laundry cart for pcu, will continue to monitor and treat until share bsr with noc nurse and pt
--- NOTE | 2020-09-18 04:20 | NUR ---
SHIFT SUMMARY PATIENT FOUND TO BE A PLEASANT MAN WHO IS A&OX4, BROCK, AND FOLLOWING COMMANDS. UP IND IN ROOM. NO SIGNS OF ACUTE DISTRESS OR PAIN NOTED UPON ASSESSMENT. CONVERTED TO AFIB FROM SR ABOUT MID SHIFT AND UNSURE OF EXACT TIME DUE TO ISSUES WITH TELE BOX. CONTROLLED AFIB IN THE 80'S AT THIS TIME. BP ON THE SOFT SIDE SO HELD EVENING DOSE OF METOPROLOL. ON 2LNC SATING MID 90'S. SITTING UP IN CHAIR FOR SLEEP, IS MORE COMFORTABLE FOR PATIENT AND EASIER TO COUGH. PRODUCTIVE COUGH WITH ROBUTUSSIN Q4H HELPING GREATLY WITH GETTING SPUTUM UP. IV ABX INFUSING PER ORDER. NO ACUTE CONCERNS AT THIS TIME. WILL CONTINUE TO MONITOR UNTIL REPORT GIVEN TO DAYSHIFT RN.
[2020-09-18 05:17] LABS: BASOPHILS ABSOLUTE AUTO 0.01 K/mm3 (0.00-0.23); BASOPHILS PERCENT AUTO 0 % (0-2); EOSINOPHILS ABSOLUTE AUTO 0.09 K/mm3 (0.00-0.68); EOSINOPHILS PERCENT AUTO 2 % (0-6); Hemoglobin 11.4 g/dL (13.5-17.5); IMMATURE GRAN ABSOLUTE AUTO 0.01 K/mm3 (0.00-0.10); IMMATURE GRAN PERCENT AUTO 0 % (0-1); LYMPHOCYTES ABSOLUTE AUTO 0.52 K/mm3 (0.84-5.20); LYMPHOCYTES PERCENT AUTO 11 % (21-46); MONOCYTES ABSOLUTE AUTO 0.79 K/mm3 (0.16-1.47); MONOCYTES PERCENT AUTO 17 % (4-13); Mean Corpuscular HGB 32.4 pg (26.0-34.0); Mean Corpuscular HGB Conc 33.5 g/dL (31.5-36.5); Mean Corpuscular Volume 97 fL (80-100); Mean Platelet Volume 10.2 fL (9.1-12.4); NEUTROPHILS ABSOLUTE AUTO 3.16 K/mm3 (1.96-9.15); NEUTROPHILS PERCENT AUTO 69 % (41-73); Platelet Count 170 K/mm3 (150-400); RDW Standard Deviation 46.4 fL (35.1-46.3); Red Blood Cell Count 3.52 M/mm3 (4.30-5.90); White Blood Cell Count 4.58 K/mm3 (4.00-11.30)
[2020-09-18 05:49] LABS: Anion Gap 4 mmol/L (6-16); Blood Urea Nitrogen 13 mg/dL (8-24); Bun/Creatinine Ratio 17.1 (12.0-20.0); CO2, Blood 25 mmol/L (21-32); Calcium, Blood 8.8 mg/dL (8.5-10.1); Chloride, Blood 101 mmol/L (98-108); Creatinine, Blood 0.76 mg/dL (0.60-1.20); Glomerular Filtration Rate >60 (60-); Glucose, Blood 125 mg/dL (70-99); Potassium, Blood 4.2 mmol/L (3.5-5.5); Sodium, Blood 130 mmol/L (136-145)
[2020-09-18] MEDS ORDERED: IPRAT-ALBUT 0.5-3 ML INH (11:33)
[2020-09-18] MEDS ORDERED: PROBIOTIC1 EA13 (11:34)
[2020-09-18] MEDS ORDERED: CEFP200 PO (11:36)
[2020-09-18] MEDS ORDERED: FURO20 PO (11:41)
--- NOTE | 2020-09-18 12:39 | NUR ---
PATIENT DISCHARGED TO HOME WITH FAMILY. TELEMETRY AND IV SALINE LOCK REMOVED WITHOUT INCIDENT. VERBALIZED UNDERSTANDING OF D/C INSTRUCTIONS, BUT WAS HESITANT ABOUT NEW MEDICATIONS. WENT OVER THESE MORE THAN ONCE, GAVE PRINTED EDUCATION AND SIDE EFFECT SHEET. HOME NEBULIZER MACHINE ORDERED BY Angelo SHEPHERD CM TO BE DELIVERED TO HOME. OFF UNIT VIA W/C AT 1228. NO BELONGINS LEFT BEHIND IN ROOM.
--- NOTE | 2020-09-18 13:22 | NUR ---
Met with Nguyễn re: AD/POLST and code status per PC consult order. Nguyễn is an 89 year old with a history of lung cancer s/p chemo and radiation tx, CHF, COPD, HTN and GERD, aspiration pneumonia. He was admitted for sepsis on 09/16/20. He will ge going home today. I lives with his and son at home. He reports that he and his are able to manage with minimal help at home. His discharge orders have been written and he is looking forward to going home. Nguyễn doesn't have an AD or POLST form on file. He states that he is unsure of what type of care he would want for the future care. Discussed options of full code vs. DNR and what each of those options look like. He states that he would like to go home and talk with his family about his choices. Provided a copy of the advanced directive booklet and POLST form along with the contact information for the PC office. He will take these forms home, he also requested to take a second set of AD and POLST forms home for his . Encouraged him to talk with his family and Dr. Foote, his PCP. He has an appointment with Dr. Dary joyner a week. Also encouraged him to contact the PC office if he has any questions once he gets home. His grandson at the bedside has some caregiver experience and states that he knows about the AD and POLST forms. His grandson also offered to help him with the forms should he choose to fill them out. Nguyễn reports Dr. Glynn is his oncologist and he has an appointment for a follow up CT in a few months. He reports some dysphagia which he attributes to the radiation treatments. He will be a high risk for readmit. PC to remain available for advanced care planning assistance prn.
== END 2020-09-18 12:23 | disposition home or self-care (01) | DRG 862 ==
LOC: ER 20:55 → MEDS 09-15 01:52 → PCU 09-15 15:03 → MEDS 09-17 10:47
PROVIDERS: Internal Medicine; Physician Assistant; ADMIT Internal Medicine
DX: T81.40XA Infection following a procedure, unspecified, initial encounter (principal); R65.20 Severe sepsis without septic shock; J69.0 Pneumonitis due to inhalation of food and vomit; J18.9 Pneumonia, unspecified organism; A41.59 Other Gram-negative sepsis; N39.0 Urinary tract infection, site not specified; I50.32 Chronic diastolic (congestive) heart failure; I48.92 Unspecified atrial flutter; J44.1 Chronic obstructive pulmonary disease with (acute) exacerbation; J44.0 Chronic obstructive pulmonary disease with (acute) lower respiratory infection; T81.44XA Sepsis following a procedure, initial encounter; Z66 Do not resuscitate; Z20.822 Contact with and (suspected) exposure to COVID-19; E78.5 Hyperlipidemia, unspecified; E66.9 Obesity, unspecified; R13.10 Dysphagia, unspecified; J20.9 Acute bronchitis, unspecified; I11.0 Hypertensive heart disease with heart failure; K21.9 Gastro-esophageal reflux disease without esophagitis; J44.9 Chronic obstructive pulmonary disease, unspecified; N40.0 Benign prostatic hyperplasia without lower urinary tract symptoms; Z87.891 Personal history of nicotine dependence; Z88.0 Allergy status to penicillin; Z79.01 Long term (current) use of anticoagulants; Z79.899 Other long term (current) drug therapy; Z98.890 Other specified postprocedural states; Z85.118 Personal history of other malignant neoplasm of bronchus and lung; Z90.89 Acquired absence of other organs; Y84.8 Other medical procedures as the cause of abnormal reaction of the patient, or of later complication, without mention of misadventure at the time of the procedure; Z92.21 Personal history of antineoplastic chemotherapy; Z92.3 Personal history of irradiation; Z68.29 Body mass index [BMI] 29.0-29.9, adult
CPT/HCPCS: 36415; 71045; 80048; 80053; 80162; 81001; 83605; 84145; 84443; 85025; 85610; 85730; 87040; 92610; 93005; 93010; 94640; 94667; 94760; 94761; 96365; 99285-25; A9270; J0456; J0692; J0696; J7030; J7050; J7120; U0004

== ENCOUNTER 2020-09-23 13:04 | Emergency (ER) | payer MEDICARE ==
[~2020-09-23] VITALS: Ht 170.2 cm; Wt 83.0 kg
[~2020-09-23 13:04] MED LIST changes: +CEFP200 PO; +FINA5 PO; +IPRAT-ALBUT 0.5-3 ML INH; +PROBIOTIC1 EA13
[2020-09-23 13:43] LABS: BASOPHILS ABSOLUTE AUTO 0.02 K/mm3 (0.00-0.23); BASOPHILS PERCENT AUTO 0 % (0-2); EOSINOPHILS ABSOLUTE AUTO 0.05 K/mm3 (0.00-0.68); EOSINOPHILS PERCENT AUTO 1 % (0-6); Hematocrit 37.7 % (37.0-53.0); Hemoglobin 12.9 g/dL (13.5-17.5); IMMATURE GRAN ABSOLUTE AUTO 0.02 K/mm3 (0.00-0.10); IMMATURE GRAN PERCENT AUTO 0 % (0-1); LYMPHOCYTES ABSOLUTE AUTO 0.79 K/mm3 (0.84-5.20); LYMPHOCYTES PERCENT AUTO 15 % (21-46); MONOCYTES ABSOLUTE AUTO 0.71 K/mm3 (0.16-1.47); MONOCYTES PERCENT AUTO 13 % (4-13); Mean Corpuscular HGB 32.1 pg (26.0-34.0); Mean Corpuscular HGB Conc 34.2 g/dL (31.5-36.5); Mean Corpuscular Volume 94 fL (80-100); Mean Platelet Volume 9.6 fL (9.1-12.4); NEUTROPHILS ABSOLUTE AUTO 3.72 K/mm3 (1.96-9.15); NEUTROPHILS PERCENT AUTO 70 % (41-73); Platelet Count 311 K/mm3 (150-400); RDW Coefficient Variation 12.9 % (11.7-14.2); RDW Standard Deviation 44.1 fL (35.1-46.3); Red Blood Cell Count 4.02 M/mm3 (4.30-5.90); White Blood Cell Count 5.31 K/mm3 (4.00-11.30)
[2020-09-23] MEDS ORDERED: TERA5 PO (13:49)
[2020-09-23 14:04] LABS: Alanine Aminotransfer (ALT/SGP 31 U/L (12-78); Albumin, Blood 3.5 g/dL (3.4-5.0); Albumin/Globulin Ratio 0.8 (0.8-1.8); Alk Phos 59 U/L (50-136); Anion Gap 6 mmol/L (6-16); Aspartate Aminotrans (AST/SGOT 26 U/L (12-37); Bilirubin, Total 0.6 mg/dL (0.1-1.0); Blood Urea Nitrogen 8 mg/dL (8-24); CO2, Blood 28 mmol/L (21-32); Calcium, Blood 9.6 mg/dL (8.5-10.1); Chloride, Blood 99 mmol/L (98-108); Creatinine, Blood 0.73 mg/dL (0.60-1.20); Globulin, Blood 4.2 g/dL (2.2-4.0); Glomerular Filtration Rate >60 (60-); Glucose, Blood 111 mg/dL (70-99); Potassium, Blood 4.1 mmol/L (3.5-5.5); Sodium, Blood 133 mmol/L (136-145); Total Protein, Blood 7.7 g/dL (6.4-8.2)
[2020-09-23] MEDS ORDERED: METO25ER PO (14:31)
== END 2020-09-23 14:47 | disposition home or self-care (01) ==
LOC: ER 13:04
PROVIDERS: Physician Assistant
DX: R60.0 Localized edema (principal); R00.0 Tachycardia, unspecified; K21.9 Gastro-esophageal reflux disease without esophagitis; J44.9 Chronic obstructive pulmonary disease, unspecified; I11.0 Hypertensive heart disease with heart failure; I50.32 Chronic diastolic (congestive) heart failure; Z88.0 Allergy status to penicillin; Z79.899 Other long term (current) drug therapy
CPT/HCPCS: 71046; 80053; 83690; 83880; 84484; 85025; 93005; 93010; 99284-25; A9270

== ENCOUNTER 2021-06-24 13:22 | Emergency (ER) | payer MEDICARE ==
[~2021-06-24] VITALS: Ht 177.8 cm; Wt 81.7 kg
[~2021-06-24 13:22] MED LIST changes: +FLUT1DIS2 INH; +GUAI600T33 PO; +LEVO750 PO; +POTA CHLORIDE ER 20M; +PRED20 PO
[2021-06-24 15:03] LABS: BASOPHILS ABSOLUTE AUTO 0.01 K/mm3 (0.00-0.23); BASOPHILS PERCENT AUTO 0 % (0-2); EOSINOPHILS ABSOLUTE AUTO 0.16 K/mm3 (0.00-0.68); EOSINOPHILS PERCENT AUTO 2 % (0-6); Hemoglobin 12.6 g/dL (13.5-17.5); IMMATURE GRAN ABSOLUTE AUTO 0.02 K/mm3 (0.00-0.10); IMMATURE GRAN PERCENT AUTO 0 % (0-1); LYMPHOCYTES ABSOLUTE AUTO 0.69 K/mm3 (0.84-5.20); LYMPHOCYTES PERCENT AUTO 10 % (21-46); MONOCYTES ABSOLUTE AUTO 0.79 K/mm3 (0.16-1.47); MONOCYTES PERCENT AUTO 12 % (4-13); Mean Corpuscular HGB 30.8 pg (26.0-34.0); Mean Corpuscular HGB Conc 33.2 g/dL (31.5-36.5); Mean Corpuscular Volume 93 fL (80-100); Mean Platelet Volume 9.2 fL (9.1-12.4); NEUTROPHILS ABSOLUTE AUTO 4.98 K/mm3 (1.96-9.15); NEUTROPHILS PERCENT AUTO 75 % (41-73); Platelet Count 249 K/mm3 (150-400); RDW Coefficient Variation 13.7 % (11.7-14.2); RDW Standard Deviation 46.7 fL (35.1-46.3); Red Blood Cell Count 4.09 M/mm3 (4.30-5.90); White Blood Cell Count 6.65 K/mm3 (4.00-11.30)
[2021-06-24 15:47] LABS: Alanine Aminotransfer (ALT/SGP 31 U/L (12-78); Albumin, Blood 2.7 g/dL (3.4-5.0); Albumin/Globulin Ratio 0.6 (0.8-1.8); Alk Phos 54 U/L (50-136); Anion Gap 6 mmol/L (6-16); Aspartate Aminotrans (AST/SGOT 24 U/L (12-37); Bilirubin, Total 0.5 mg/dL (0.1-1.0); Blood Urea Nitrogen 13 mg/dL (8-24); Bun/Creatinine Ratio 18.5 (12.0-20.0); CO2, Blood 31 mmol/L (21-32); Calcium, Blood 9.1 mg/dL (8.5-10.1); Chloride, Blood 96 mmol/L (98-108); Globulin, Blood 4.4 g/dL (2.2-4.0); Glomerular Filtration Rate >60 (60-); Glucose, Blood 175 mg/dL (70-99); Potassium, Blood 3.8 mmol/L (3.5-5.5); Sodium, Blood 133 mmol/L (136-145); Total Protein, Blood 7.1 g/dL (6.4-8.2)
== END 2021-06-24 16:20 | disposition home or self-care (01) ==
LOC: ER 13:22
PROVIDERS: Physician Assistant
DX: I11.0 Hypertensive heart disease with heart failure (principal); I50.32 Chronic diastolic (congestive) heart failure; K21.9 Gastro-esophageal reflux disease without esophagitis; J44.9 Chronic obstructive pulmonary disease, unspecified
CPT/HCPCS: 36415; 71046; 80053; 83880; 85025; 93005; 93010; 99285-25